=== PATIENT | male | born 1960 | race Caucasian/White ===

== ENCOUNTER 2023-12-18 18:04 | Inpatient (IN) | payer OTHER, SELFPAY ==
[2023-12-18] VITALS (7 sets, daily range): BP systolic 93–134; BP diastolic 53–82; BMI 29.5; BMI 30.8
--- NOTE | 2023-12-18 12:38 | ED.PDOC.TRB ---
ED Provider Triage
-
Patient seen by provider in Triage?: Seen in Triage
63-year-old male with history of hypertension-into the ER after dark stool on toilet for last 2 days. He does note fatigue more recently as well. History of gastric ulcer in the past. Currently takes 81 mg aspirin. Has had a tooth ache but
states only was taking Tylenol and not any NSAIDs. No other blood thinners. No tobacco or alcohol use. Blood pressure is noted to be a little bit on the lower side but he is otherwise stable. Will initiate labs and EKG. Patient is stable for
the waiting room at this time but will keep a close eye on his hemoglobin.
[2023-12-18 13:13] LABS: % Basophils 0.6 % (0-2); % Eosinophils 0.7 % (0-6); % Immature Granulocytes 0.2 % (0-0.5); % Monocytes 6.7 % (1.7-9.3); % Neutrophils 75.8 % (42.2-75.2); Absolute Basophils 0.1 10^3/uL (0-0.2); Absolute Eosinophils 0.1 10^3/uL (0-0.7); Absolute Lymphocytes 1.4 10^3/uL (1.2-3.4); Absolute Monocytes 0.6 10^3/uL (0.1-0.6); Absolute Neutrophils 6.8 10^3/uL (1.4-6.5); Hematocrit 27.4 % (39.0-52.0); Hemoglobin 9.5 g/dL (13.0-18.0); Mean Corp Hgb Conc. 34.7 g/dL (33.0-37.0); Mean Corpuscular Hgb 29.6 pg (27.0-31.0); Mean Corpuscular Volume 85.4 fL (80.0-94.0); Mean Platelet Volume 8.9 fL (7.4-10.4); Nucleated Red Blood Cells % 0 % (-); Platelet Count 338 10^3/uL (130-400); Red Blood Cell Count 3.21 10^6/uL (4.70-6.10); Red Cell Dist. Width 14.4 % (11.5-14.5); White Blood Cell Count 8.9 10^3/uL (4.8-10.8)
[2023-12-18 13:26] LABS: ALT (SGPT) 41 U/L (0-50); AST (SGOT) 45 U/L (17-59); Alkaline Phosphatase 109 U/L (38-126); Blood Urea Nitrogen 57 mg/dl (9-20); Calcium 9.4 mg/dl (8.4-10.2); Carbon Dioxide 19 mmol/L (22-30); Chloride 107 mmol/L (98-107); Glucose 117 mg/dl (70-99); Potassium 4.6 mmol/L (3.5-5.1); Sodium 136 mmol/L (135-145); Total Bilirubin 0.4 mg/dl (0.2-1.3); Total Protein 6.6 g/dl (6.3-8.2); eGFR > 60.00
--- NOTE | 2023-12-18 15:47 | ED.GENMED ---
History of Present Illness
General
Chief Complaint: Anal/Rectal Problem
Time Seen by Provider: 12/18/23 15:10
Travel History
Have you had any contact with someone who has COVID-19?: No
Do you have any symptoms of coronavirus? Fever > 100 degrees, chills, cough, shortness of breath, sore throat, loss of taste or smell, muscle aches, or headache?: No
History of Present Illness
History of Present Illness:
Patient presents to the emergency department with general weakness and dark stools for the past 2 to 3 days. Notes feeling generally fatigued. Denies abdominal pain. Notes that his stools have been very dark. Has a history of bleeding gastric
ulcer in the past. He states that it was felt to be contributed to aspirin use at that time. Does note intermittent Advil use. Denies alcohol use.
Phy Exam
Physical Exam
Physical Exam:
GENERAL APPEARANCE: NAD, well developed/ well nourished, unkempt
EYES pallor noted
EARS/NOSE/THROAT Mucous membranes moist, uvula midline without oral pharyngeal erythema, exudate or swelling
HEAD/NECK normocephalic atraumatic, neck is supple.
RESPIRATORY respiratory effort normal, speaks in full sentences, no accessory muscle use. Lungs clear to auscultation without rhonchi, wheezes, rales
CARDIAC Regular rate and rhythm, no edema.
ABDOMINAL Soft, ND/NT.
MUSCLES/EXTREMITIES No abnormal range of motion, no swelling.
SKIN Warm, pink and dry. No rashes
NEUROLOGICAL Speech is clear and appropriate. Normal level of consciousness. 5/5 strength in all extremities.
PSYCH Normal mood and affect. Judgement/competence is appropriate
Scores
GI Bleed
History of cardiac failure?: No
History of hepatic failure?: No
History of recent syncope?: No
Pulse >100?: No
SBP <110?: Yes
Hgb <13 (male) <12 (female)?: Yes
BUN >18mg/dL?: Yes
Melena present?: Yes
Recommendation: Pt has higher risk for needing a medical intervention. Inpatient admission recommended.
Course
Orders/Labs/Results
Orders:
Orders
12/18/23 12:35
Electrocardiogram (*1) Urgent
Reason for Study: Fatigue / Weakness
EKG- Treatment ONCE
12/18/23 12:51
Type+Screen Urgent
Complete Blood Count/With Diff Urgent
Comprehensive Metabolic Panel Urgent
Ferritin Urgent
Comment: ADD ON
Iron Urgent
Total Iron Binding Urgent
12/18/23 Dinner
NPO
Allow oral meds: Yes
Allow clear liquids: Sips of Clears
12/18/23 15:43
Pantoprazole 80 mg/100 ml Nss [Protonix] 80 mg in 100 ml IV NOW
Pantoprazole [Protonix IV] 80 mg IV NOW STA
12/18/23 16:38
0.9% Sodium Chloride 1000 ml [Nss] 1,000 ml IV BOLUS
12/18/23 16:44
Add On- LAB Routine
Tests Added?: iron, TIBC, % sat, ferritin
12/18/23 16:53
Admit/Transfer Patient As Directed
Co-Sign Provider:
Level of Care: Inpatient admission
Assign to:: Telemetry
Physician / Group: andie
Diagnosis: UGIB
Reason for Telemetry: Arrhythmia
Date to Stop Telemetry: 12/21/23
Time to Stop Telemetry: 11:00
Reason for Hospitalization: UGIB
Expected length of stay greater than two midnights?: Yes
ELOS- Estimated Length of Stay in days: 2
I certify the patient meets the requirements for IP care: Yes
Code Status As Directed
Resuscitation Status: Full Code
12/18/23 19:59
GASTROINTESTINAL CONSULT Routine
Consulting Provider: Nahomy Khan
Was physician already notified: Yes
Activity As Directed
Activity Level: As Tolerated
Pneumatic Compression Sleeves As Directed
Type: Knee high
Vital Signs As Directed
Frequency: Per unit guidelines
DX Deep Vein Thrombosis Video Routine
12/19/23 02:00
Pantoprazole 80 mg/100 ml Nss [Protonix] 80 mg in 100 ml IV Q10H
12/19/23 Breakfast
NPO
Allow oral meds: Yes
Allow clear liquids: 4hrs prior to procedure
NPO for procedure after (time): midnight for GI Procedure tomorrow
Comment: may have unrestricted clear liquids up to 4 hrs prior to scheduled proc
Basic Metabolic Panel IN AM
Complete Blood Count/No Diff IN AM
Complete Blood Count/With Diff IN AM
Comprehensive Metabolic Panel IN AM
Prothrombin Time IN AM
12/19/23 08:00
Ezetimibe [Zetia] 10 mg PO DAILY
Rosuvastatin Calcium [Crestor] 5 mg PO DAILY
12/19/23 16:46
Surgical Procedure As Directed
Surgical Procedure: EGD 67
12/21/23 11:00
DC Protocol for Telemetry ONCE
Abnormal Lab Results
12/18/23
12:51
RBC 3.21 L 10^6/uL
(4.70-6.10)
Hgb 9.5 L g/dL
(13.0-18.0)
Hct 27.4 L %
(39.0-52.0)
Absolute Neuts (auto) 6.8 H 10^3/uL
(1.4-6.5)
Neutrophils % 75.8 H %
(42.2-75.2)
Lymphocytes % 16.0 L %
(20.5-51.1)
Carbon Dioxide 19 L mmol/L
(22-30)
BUN 57 H mg/dl
(9-20)
Glucose 117 H mg/dl
(70-99)
% Saturation 18 L %
(20-50)
12/18/23 12:51
12/18/23 12:51
Vital Signs
Initial and Last Documented VS:
Initial Vital Signs
Temp Pulse Resp BP Pulse Ox
98.0 F 94 16 100/53 98
12/18/23 12:30 12/18/23 12:30 12/18/23 12:30 12/18/23 12:30 12/18/23 12:30
Last Documented Vital Signs
Temp Pulse Resp BP Pulse Ox
98.2 F 81 18 114/65 98
12/18/23 20:08 12/18/23 20:08 12/18/23 20:08 12/18/23 20:08 12/18/23 20:08
*Critical Care Note
Total Time (30-74mins, 75-104mins- exclusive of procedures): Not Applicable
ED Attending Note
ED Attending Note
ED Attending Note:
Patient has melena currently. Systolic blood pressure is 100. Hemoglobin 9.5 but no prior to compare. BUN 57. Suspect upper GI bleeding likely from recurrent gastric ulcer. Will admit to the hospitalist service and consult GI. Patient started
on Protonix drip.
-
Portions of this chart may have been created with voice recognition software.� Occasional wrong word or��sound alike� substitutions may have occurred due to the inherent limitations of voice recognition software.
Discharge Plan
Departure
Patient Disposition: Admit
Date of Disposition: 12/18/23
Time of Disposition: 15:53
Admit to: Med/Surg
Admit to doctor: hospitalist
Presentation/result/management discussed w/ accepting MD/DO: Hospitalist
Discharge Problem:
Acute upper gastrointestinal bleeding
Interventions
Interventions:
*Risk Screen - Suicide Last Done: 12/18/23 16:24
*General Assessment Last Done: 12/18/23 16:24
*Neglect/Abuse Screening Last Done: 12/18/23 16:24
ED- Fall Risk Assessment Last Done: 12/18/23 19:47
*ED COVID-19 Vaccine History Last Done: 12/18/23 12:30
*Nursing Disposition Last Done: 12/18/23 19:47
ED-Skin Assessment Last Done: 12/18/23 16:24
Discharge Date and Time
Discharge Date/Time: 12/18/23 19:48
--- NOTE | 2023-12-18 16:00 | CON.GI ---
Addendum entered and electronically signed by Nahomy Khan MD 12/18/23 19:05:
I saw and examined the patient.
The PIGMENT PRESSER or PA's note was reviewed and I agree with the note.
Comment:
Pt is a 63 y/o with previous esophagitis in 2002 who took nsaids and had melena. No abdominal pain
abd: soft, nontender
impression
melena likely due to PUD from nsaids
anemia
gerd
plan:
PPI bid
EGD tomorrow
follow hgb
clears ok for tonight
colonoscopy if egd negative or electively
Original Note:
Consultation
-
Date/Time Consultation Requested: 12/18/23 1555
Date/Time Consultation Performed: 12/18/23 1600
Requesting Provider: Jcarlos Donohue MD
Performing Provider: JUANITA Duncan, Nahomy Khan MD
Reason for Consultation: eval for GI bleed
Medical History
Chief Complaint / HPI
Chief Complaint: dark stools
History of Present Illness:
Pt is a 63yo with hx CVA, HTN, GERD, GI bleed 2002 with grade II esophagitis, large distal esophageal ulcer about Z line with clot and HH noted at that time. Pt returned several months late with noted gastritis, HH and schatzki's ring on repeat EGD
with neg H pylori. He states he has been doing well with routine follow up with cardiology for HTN management and PCP. He did not recall any abnormal labs several months ago. He now presents with dark stools x 2 days with fatigue, dizziness,
and noted Melena in ER. Currently on ASA 81 mg daily. He also admits to last week taking about 24 Aleve over the week for tooth pain. He stopped medication and has not followed up with dentist. On admission hbg was 9.5, with BUN 57 and last stool
6/5 PM. He did take a Prilosec after noted some blood last week than may have been from his tooth.
Pt admits to mild abdominal pain and dizziness. He otherwise denies odynophagia, dysphagia, GERD, diarrhea, constipation, or red blood in stools. no anticoagulation prior to admission.
Past Medical History
Past Medical History: CVA, HTN and Other (GI bleed with prior esophagititis and large )
Social History
Tobacco: Former Smoker (quit 2000)
Alcohol: None
Drug: None
Living: With Family (son)
Employment: Retired
Family History
Family History: Other (no family hx GI problems)
Allergies / Home Medications
Allergy/AdvReac Type Severity Reaction Status Date / Time
NKA - No Known Allergies Allergy Unknown Uncoded 12/18/23 12:34
�Medication �Instructions �Recorded
amlodipine 10 mg tablet 10 mg PO DAILY 12/18/23
aspirin 81 mg tablet,delayed 81 mg PO DAILY 12/18/23
release
ezetimibe 10 mg tablet 10 mg PO DAILY 12/18/23
hydrochlorothiazide 12.5 mg tablet 12.5 mg PO DAILY 12/18/23
lisinopril 40 mg tablet 40 mg PO DAILY 12/18/23
rosuvastatin 5 mg tablet 5 mg PO DAILY 12/18/23
Review of Systems
-
History Source: Patient
Constitutional: Reports Fatigue
EENT: Reports Other (recent tooth pain with NSAID use)
Respiratory: Reports No Symptoms
Abdomen/GI: Reports Abdominal Pain, Nausea, Vomiting and Black Stools
: Reports No Symptoms
Musculoskeletal: Reports Joint Pain
Skin: Reports No Symptoms
Neurological: Reports Dizzy and Weakness
Endocrine: Reports No Symptoms
Hematologic/Lymphatic: Reports Bleeding
Vital Signs
Temp Pulse Resp BP Pulse Ox
98.0 F 94 16 100/53 98
12/18/23 12:30 12/18/23 12:30 12/18/23 12:30 12/18/23 12:30 12/18/23 12:30
Physical Exam
Exam
General: Well Developed, Well Nourished and No Apparent Distress
HEENT: Normocephalic and Anicteric
Respiratory: Clear
Cardiac: Regular Rhythm
GI: Soft, Non Tender and Non Distended
Musculoskeletal: No Clubbing and No Cyanosis
Skin: Warm and Dry
Neuro: Awake, Alert and AO x 3
Psych: Calm
Results
WBC 8.9 10^3/uL (4.8-10.8) 12/18/23 12:51
Hgb 9.5 g/dL (13.0-18.0) L 12/18/23 12:51
Hct 27.4 % (39.0-52.0) L 12/18/23 12:51
MCV 85.4 fL (80.0-94.0) 12/18/23 12:51
Plt Count 338 10^3/uL (130-400) 12/18/23 12:51
Absolute Neuts (auto) 6.8 10^3/uL (1.4-6.5) H 12/18/23 12:51
Sodium 136 mmol/L (135-145) 12/18/23 12:51
Potassium 4.6 mmol/L (3.5-5.1) 12/18/23 12:51
Chloride 107 mmol/L (98-107) 12/18/23 12:51
Carbon Dioxide 19 mmol/L (22-30) L 12/18/23 12:51
BUN 57 mg/dl (9-20) H 12/18/23 12:51
Creatinine 1.3 mg/dL (0.7-1.3) 12/18/23 12:51
Calcium 9.4 mg/dl (8.4-10.2) 12/18/23 12:51
Total Bilirubin 0.4 mg/dl (0.2-1.3) 12/18/23 12:51
AST 45 U/L (17-59) 12/18/23 12:51
ALT 41 U/L (0-50) 12/18/23 12:51
Alkaline Phosphatase 109 U/L (38-126) 12/18/23 12:51
Diagnostic Image Results:
Prior GI Procedures:
EGD: 2002 with grade II esophagitis, large distal esophageal ulcer about Z line with clot and HH noted at that time.
EGD: 2003 gastritis, HH and schatzki's ring on repeat EGD with neg H pylori.
Colonoscopy: none
Assessment / Plan
-
Pt is a 63yo with hx CVA, HTN, GERD, GI bleed 2002 with grade II esophagitis, large distal esophageal ulcer about Z line with clot and HH noted at that time. Pt returned several months late with noted gastritis, HH and schatzki's ring on repeat EGD
with neg H pylori. He states he has been doing well with routine follow up with cardiology for HTN management and PCP. He did not recall any abnormal labs several months ago. He now presents with dark stools x 2 days with fatigue, dizziness,
and noted Melena in ER. Currently on ASA 81 mg daily. He also admits to last week taking about 24 Aleve over the week for tooth pain. He stopped medication and has not followed up with dentist. On admission hbg was 9.5, with BUN 57 and last stool
6/5 PM. He did take a Prilosec after noted some blood last week than may have been from his tooth. No Anticoagulation prior to admission.
-melena
-symptomatic anemia
-recent NSAID use for tooth pain
-2002 hx GI bleed distal esophageal ulcer, HH, schatzki's ring
-GERD
-HTN
-hx CVA 2000
PLAN:
ETiology of melena and anemia related to Peptic/esophageal ulcer, chaim lesion with hx HH vs other
trend hbg and stool pattern transfuse <7
PPI gtt
plan for EGD in AM if neg consider colonoscopy vs if + consider OP colon for screening
NSAID avoidance
will need OP dental eval with tooth issue
will follow
-
-
Thank you for consultation and allowing me to participate in the patient's care. Please call the main [facility] physician during the after hours with any questions or concerns.
[2023-12-18] MEDS: PROTONIX 100 IV (16:22)
[2023-12-18] MEDS: PROTONIX IV 80 MG IV (16:23)
[2023-12-18] MEDS: NSS 1000 IV (16:48)
--- NOTE | 2023-12-18 16:57 | HPS.HSE ---
Addendum entered and electronically signed by Aster Contreras MD 12/18/23 17:01:
Outpatient follow up with dentist for tooth ache.
Original Note:
Family Physician
-
Family Physician: Victorina Senior
Chief Complaint
-
black stool
History of Present Illness
63-year-old male past medical history of prior bleeding gastric ulcer 2002, hypertension, hypercholesterolemia, CVA in 2000, cervical disc disease/arthritis presenting with episode of black stool yesterday night. He denies any bowel movement today.
He did feel lightheaded today with fatigue. He did have some abdominal pain this morning but this has since resolved. He denies any nausea or vomiting.
He has recently been taking ibuprofen for toothache. He takes baby aspirin every day.
He has a history of bleeding gastric ulcer in 2002 that was attribute to aspirin use.
He drinks alcohol on occasion. He denies smoking or marijuana use.
Medical History
Past Medical History
Past Medical History: Reports Other (prior bleeding gastric ulcer 2002, hypertension, hypercholesterolemia, CVA in 2000, cervical disc disease/arthritis )
Past Surgical History: Reports None
Social History
Tobacco: Non-smoker
Alcohol: Occasional
Drug: None
Family History
Family History: Not pertinent
Allergies / Home Medications
Allergies reflects when Allergies were last updated in [employer].
Home Medications with original date entered in [employer]
Allergy/Medication List:
Allergies
Allergy/AdvReac Type Severity Reaction Status Date / Time
NKA - No Known Allergies Allergy Unknown Uncoded 12/18/23 12:34
Home Medications
amlodipine 10 mg tablet 10 mg PO DAILY 12/18/23
aspirin 81 mg tablet,delayed release 81 mg PO DAILY 12/18/23
ezetimibe 10 mg tablet 10 mg PO DAILY 12/18/23
hydrochlorothiazide 12.5 mg tablet 12.5 mg PO DAILY 12/18/23
lisinopril 40 mg tablet 40 mg PO DAILY 12/18/23
rosuvastatin 5 mg tablet 5 mg PO DAILY 12/18/23
Review of Systems
-
History Source: Patient
A 12 point ROS was completed and negative except as noted: Yes
Constitutional: Reports No Symptoms
EENT: Reports No Symptoms
Respiratory: Reports No Symptoms
Cardiac: Reports No Symptoms
Abdomen/GI: Reports See HPI
: Reports No Symptoms
Musculoskeletal: Reports No Symptoms
Skin: Reports No Symptoms
Neurological: Reports No Symptoms
Endocrine: Reports No Symptoms
Hematologic/Lymphatic: Reports No Symptoms
Psych: Reports No Symptoms
Physical Exam
Vital Signs
Vital Signs
Temp Pulse Resp BP Pulse Ox
98.0 F 72 20 93/61 99
12/18/23 12:30 12/18/23 16:23 12/18/23 16:23 12/18/23 16:23 12/18/23 16:23
Physical Exam
General: Well Developed, Well Nourished and No Apparent Distress
HEENT: NormoCephalic, Moist mucous membranes and Atraumatic
Respiratory: Clear
Cardiac: S1/S2 and Regular Rhythm; No Murmur or Rub
GI: Soft, Non Tender, Non Distended and Normal Bowel Sounds; No Organomegaly
Rectal: Deferred by Provider
Musculoskeletal: No Clubbing, No Cyanosis and No Edema
Skin: No Rash
Neuro: Nonfocal/grossly intact
Laboratory Results
-
12/18/23 12:51
12/18/23 12:51
Laboratory Results
Total Bilirubin 0.4 mg/dl (0.2-1.3) 12/18/23 12:51
AST 45 U/L (17-59) 12/18/23 12:51
ALT 41 U/L (0-50) 12/18/23 12:51
Alkaline Phosphatase 109 U/L (38-126) 12/18/23 12:51
Data Reviewed
-
Lab Data: Labs Reviewed by me
Old Records: Reviewed
Impression/Plan
-
IMPRESSION:
PLAN:
# Upper GI bleeding likely secondary to gastric ulcer secondary to NSAID use/aspirin
# History of prior bleeding gastric ulcer in 2002
-Blood pressure 90-100 systolic
-Hemoglobin 9.5, unknown baseline
-IV fluids given
-N.p.o.
-Hold aspirin
-Protonix drip
-GI consulted
Essential hypertension
-Hold amlodipine, lisinopril, hydrochlorothiazide
Hyperlipidemia
-Continue statin, Zetia
History of CVA
-Hold aspirin
Cervical arthritis/disc disease
Full code
DVT prophylaxis�SCDs
N.p.o.
[2023-12-18 17:23] LABS: Iron 63 ug/dl (49-181)
[2023-12-18 17:32] LABS: Percent Saturation 18 % (20-50); Total Iron Binding Capacity 344 ug/dl (261-462)
[2023-12-18] MEDS: TYLENOL 650 MG PO (21:41)
--- NOTE | 2023-12-18 22:05 | PTCARENOTE ---
Received patient from ER, AAOx4. Patient ambulating with steady gait from stretcher to bed. C/o tooth/mouth pain and received tylenol. Oriented to unit, call araujo in reach. Plan of care continues.
[2023-12-19] VITALS (7 sets, daily range): BP systolic 18–111; BP diastolic 60–73
[2023-12-19] MEDS: PROTONIX 100 IV ×2 (01:28→10:56)
[2023-12-19] MEDS: TYLENOL 650 MG PO ×2 (03:51→23:21)
[2023-12-19] MEDS: ZETIA 10 MG PO (07:48)
[2023-12-19] MEDS: CRESTOR 5 MG PO (07:48)
[2023-12-19 07:58] LABS: % Basophils 0.4 % (0-2); % Eosinophils 0.7 % (0-6); % Immature Granulocytes 0.6 % (0-0.5); % Lymphocytes 18.8 % (20.5-51.1); % Neutrophils 71.5 % (42.2-75.2); Absolute Eosinophils 0.1 10^3/uL (0-0.7); Absolute Lymphocytes 1.3 10^3/uL (1.2-3.4); Absolute Monocytes 0.6 10^3/uL (0.1-0.6); Hematocrit 24.5 % (39.0-52.0); Hemoglobin 8.5 g/dL (13.0-18.0); Mean Corp Hgb Conc. 34.7 g/dL (33.0-37.0); Mean Corpuscular Hgb 29.3 pg (27.0-31.0); Mean Corpuscular Volume 84.5 fL (80.0-94.0); Mean Platelet Volume 8.9 fL (7.4-10.4); Nucleated Red Blood Cells % 0 % (-); Platelet Count 276 10^3/uL (130-400); Red Cell Dist. Width 14.6 % (11.5-14.5)
[2023-12-19 08:12] LABS: INR 1.05; PT 13.5 Sec (11.4-14.6)
[2023-12-19 08:57] LABS: ALT (SGPT) 47 U/L (0-50); AST (SGOT) 49 U/L (17-59); Albumin 3.6 g/dl (3.5-5.0); Alkaline Phosphatase 105 U/L (38-126); Blood Urea Nitrogen 41 mg/dl (9-20); Calcium 8.9 mg/dl (8.4-10.2); Carbon Dioxide 19 mmol/L (22-30); Chloride 106 mmol/L (98-107); Estimated Creatinine Clearance 70 ml/min; Glucose 96 mg/dl (70-99); Potassium 4.5 mmol/L (3.5-5.1); Sodium 135 mmol/L (135-145); Total Bilirubin 0.7 mg/dl (0.2-1.3); eGFR > 60.00
--- NOTE | 2023-12-19 11:53 | W.PN.HOSP.TC ---
Today's Communication/Plan
-
await GI input
pt says EGD this afternoon
Assessment / Plan
Assessment / Plan
pt is a 63 year old male
Upper GI bleeding likely secondary to gastric ulcer secondary to NSAID use/aspirin for toothache (History of prior bleeding gastric ulcer in 2002)--HGB 9.5 to 8.5 with IVF--N.p.o.--Hold aspirin--Protonix drip--await GI
Essential hypertension--Hold amlodipine, lisinopril, hydrochlorothiazide
Hyperlipidemia--Continue statin, Zetia
History of CVA--Hold aspirin
Cervical arthritis/disc disease
Full code
DVT prophylaxis�SCDs
Anticipated Discharge: 24 - 48 hours
Subjective/Interval History
-
Date of Service: December 19, 2023
pt waiting for EGD
Objective Data
-
Labs:
Laboratory Results
12/19/23
06:39
WBC 7.0
Hgb 8.5 L
Hct 24.5 L
Plt Count 276
PT 13.5
INR 1.05
Sodium 135
Potassium 4.5
Chloride 106
Carbon Dioxide 19 L
BUN 41 H
Creatinine 1.1
Glucose 96
Calcium 8.9
Total Bilirubin 0.7
AST 49
ALT 47
Alkaline Phosphatase 105
Vital Signs:
max temp for 24 hours
12/19/23
03:41
Temp 98.4 F
Vital Signs
Temp Pulse Resp BP Pulse Ox
97.5 F 71 16 111/65 98
12/19/23 07:55 12/19/23 07:55 12/19/23 07:55 12/19/23 07:55 12/19/23 07:55
I&O
12/18/23 12/19/23 12/20/23
06:59 06:59 06:59
Output Total 750 / 750
Balance -750 / -750
Review of Systems
-
All other systems: Reviewed and negative
Physical Exam
-
General: Well Developed, Well Nourished and No Apparent Distress
HEENT: Normocephalic and Atraumatic
Respiratory: Clear to Auscultation; Negative Wheezes or Rhonchi
Cardiac: Regular Rhythm and S1/S2; Negative Murmur
GI: Soft, Nontender, Nondistended and Normal Bowel Sounds
Musculoskeletal: No Clubbing, No Cyanosis and No Edema
Neuro: Awake and Alert
--- NOTE | 2023-12-19 12:03 | CM ---
Patient seen at bedside with physician. Patient states that he lives with his son in a one story home. Patient states he has no DME at home and that he does not have [facility] yet. Patient PCP is Dr. Senior and he uses the [facility] in [place]. Patient is
driving and retired. Patient for testing today. CM will continue to follow for discharge planning needs.
Plan; home with no needs
[2023-12-19] MEDS: NSS (PRESERVATIVE FREE) 10 ML IV (20:28)
[2023-12-19] MEDS: CARAFATE 1 GRAM PO (20:28)
[2023-12-19] MEDS: PROTONIX IV 40 MG IV (20:29)
[2023-12-20] MEDS: TYLENOL 650 MG PO (03:35)
[2023-12-20 03:38] VITALS: BP 110/78
[2023-12-20 06:11] LABS: Hematocrit 24.2 % (39.0-52.0); Hemoglobin 8.6 g/dL (13.0-18.0); Mean Corp Hgb Conc. 35.5 g/dL (33.0-37.0); Mean Corpuscular Hgb 29.8 pg (27.0-31.0); Mean Corpuscular Volume 83.7 fL (80.0-94.0); Mean Platelet Volume 8.7 fL (7.4-10.4); Platelet Count 281 10^3/uL (130-400); Red Blood Cell Count 2.89 10^6/uL (4.70-6.10); Red Cell Dist. Width 14.6 % (11.5-14.5); White Blood Cell Count 7.3 10^3/uL (4.8-10.8)
[2023-12-20 06:32] LABS: Blood Urea Nitrogen 27 mg/dl (9-20); Calcium 8.8 mg/dl (8.4-10.2); Carbon Dioxide 23 mmol/L (22-30); Chloride 103 mmol/L (98-107); Estimated Creatinine Clearance 70 ml/min; Glucose 102 mg/dl (70-99); Potassium 4.3 mmol/L (3.5-5.1); Sodium 135 mmol/L (135-145); eGFR > 60.00
[2023-12-20 07:18] VITALS: BP 121/82
[2023-12-20] MEDS: CRESTOR 5 MG PO (08:43)
[2023-12-20] MEDS: CARAFATE 1 GRAM PO (08:43)
[2023-12-20] MEDS: ZETIA 10 MG PO (08:43)
[2023-12-20] MEDS: NSS (PRESERVATIVE FREE) 10 ML IV (08:43)
[2023-12-20] MEDS: PROTONIX IV 40 MG IV (08:47)
[2023-12-20] MEDS: FIRST-MOUTHWASH BLM SUSPENSION 5 ML PO (09:35)
--- NOTE | 2023-12-20 12:18 | CM ---
Patient seen bedside, reports no concerns to CM at this time. Patient reports he does have transportation home upon discharge. CM will continue to follow for all discharge planning needs.
Plan; home no needs, when stable.
--- NOTE | 2023-12-20 13:11 | W.PN.HOSP.TC ---
Today's Communication/Plan
-
d/c
Assessment / Plan
Assessment / Plan
pt is a 63 year old male
Upper GI bleeding likely secondary to gastric ulcer secondary to NSAID use/aspirin for toothache (History of prior bleeding gastric ulcer in 2002)--HGB 9.5 to 8.5 --tolerating diet--Hold aspirin--Protonix apprec GI--EGD with esophageal ulcer
Essential hypertension--Hold amlodipine, lisinopril, hydrochlorothiazide
Hyperlipidemia--Continue statin, Zetia
History of CVA--Hold aspirin
Cervical arthritis/disc disease
Full code
DVT prophylaxis�SCDs
Anticipated Discharge: Today
Subjective/Interval History
-
Date of Service: December 20, 2023
pt tolerating diet
Objective Data
-
Labs:
Laboratory Results
12/20/23
05:46
WBC 7.3
Hgb 8.6 L
Hct 24.2 L
Plt Count 281
Sodium 135
Potassium 4.3
Chloride 103
Carbon Dioxide 23
BUN 27 H
Creatinine 1.1
Glucose 102 H
Calcium 8.8
Vital Signs:
max temp for 24 hours
12/20/23
07:18
Temp 98.3 F
Vital Signs
Temp Pulse Resp BP Pulse Ox
98.3 F 90 24 121/82 94
12/20/23 07:18 12/20/23 07:18 12/20/23 07:18 12/20/23 07:18 12/20/23 07:18
I&O
12/19/23 12/20/23 12/21/23
06:59 06:59 06:59
Output Total 750 / 750 1325 / 1325
Balance -750 / -750 -1325 / -1325
Review of Systems
-
All other systems: Reviewed and negative
Physical Exam
-
General: Well Developed, Well Nourished and No Apparent Distress
HEENT: Normocephalic and Atraumatic
Respiratory: Clear to Auscultation; Negative Wheezes or Rhonchi
Cardiac: Regular Rhythm and S1/S2; Negative Murmur
GI: Soft, Nontender, Nondistended and Normal Bowel Sounds
Musculoskeletal: No Clubbing, No Cyanosis and No Edema
--- NOTE | 2023-12-20 14:42 | W.DCSUMMARY ---
Discharge Summary
Discharge Data
Date of Admission: 12/18/23
Date of Discharge: 12/20/23
-
Pending Results: No
Hospital Course
Primary care physician : Victorina Senior
Principal Discharge diagnosis : Upper GI bleeding secondary to esophageal ulcer exacerbated by nonsteroidal use
Chronic Discharge diagnosis : Essential hypertension, hyperlipidemia, history of stroke, cervical arthritis
Hospital Course : Patient was a 63-year-old male with a history of a prior bleeding gastric ulcer in 2002 on aspirin for CVA in 2000 who presented with black stool on the day prior to admission. He denied any bowel movements on the day of
admission. He felt lightheaded with fatigue and did have some abdominal pain which resolved. He was taking ibuprofen for a toothache. Hemoglobin was found to be 9.5 without any old to compare. Patient was admitted.
Problem #1: Upper GI bleeding. Patient was seen in consultation by GI. Endoscopy showed esophageal ulcer along with mucosal changes suspicious for long segment Mcgarry's esophagus. There were no lesions in the stomach. No specimens were
collected. This was likely exacerbated by the nonsteroidal use that he was taking for his tooth pain. Patient was placed on IV Protonix drip which has been converted to oral Protonix twice daily along with the addition of sucralfate twice daily.
He should be seen in follow-up in 4 to 6 weeks with GI to schedule repeat endoscopy in 2 months to ensure clearance.
Problem #2: All other medical issues. These include Essential hypertension, hyperlipidemia, history of stroke, cervical arthritis. These medical issues were stable during his hospitalization. Medications were continued as able. In regards to his
tooth ache, he should visit the dentist.
Patient tolerated his diet and is stable for discharge home at this time. If there are any questions regarding this dictation or his hospital stay, please do not hesitate to call. Our office number is [phone].
Procedure findings :
EGD Impression: - LA Grade A esophagitis with no bleeding.
- Esophageal ulcer.
- Esophageal mucosal changes suspicious for
long-segment Mcgarry's esophagus.
- 5 cm hiatal hernia.
- No gross lesions in the entire stomach.
- Normal examined duodenum.
- No specimens collected.
Discharge Plan
-
Patient Disposition: Home (Routine Discharge)
Discharge Diagnosis/Procedures: Upper GI bleeding due to nonsteroidal use for toothache, essential hypertension, hyperlipidemia, history of stroke, cervical arthritis and disc disease
Condition: Good
Diet: Low Residue
Additional Diets: Advance as tolerated to regular diet
Activity: As tolerated
Driving Restrictions: As prior to admission
Bathing Restrictions: None
Referrals:
Oneyda Frost MD [Active] - in four to six weeks
Victorina Senior CRNP [Family Provider] - in less than 1 week
Additional Discharge Medication Instructions: You will need to take both the pantoprazole and sucralfate twice daily for 8 weeks. I have given you 1 month supply of both. You will need to go to your family doctor for refill.
Prescriptions:
New
sucralfate 1 gram Tablet
1 g PO BID Qty: 60 0RF
Rx Instructions:
take for 8 weeks
pantoprazole 40 mg tablet,delayed release (DR/EC)
40 mg PO BID Qty: 60 0RF
Rx Instructions:
take twice daily x 8 weeks
Continued
amlodipine 10 mg tablet
10 mg PO DAILY
lisinopril 40 mg tablet
40 mg PO DAILY
ezetimibe 10 mg tablet
10 mg PO DAILY
rosuvastatin 5 mg tablet
5 mg PO DAILY
hydrochlorothiazide 12.5 mg tablet
12.5 mg PO DAILY
Held
aspirin 81 mg Tablet,Delayed Release (Dr/Ec)
81 mg PO DAILY
Hold Instructions: restart in 1 week
Discharge Orders:
Discharge Patient (As Directed); Ordered 12/20/23
Ordered By: Edwige Quinn
Discharge Date and Time
Print Language: FIJIAN
== END 2023-12-20 16:00 | disposition home or self-care (01) | DRG 382 ==
LOC: 4 EAST ACU 18:04
PROVIDERS: Internal Medicine Gastroenterology; Nurse Practitioner Adult Health; Physician Assistant Medical; ADMITTING PHYSICIAN Hospitalist; ATTENDING PHYSICIAN Internal Medicine; CONSULT PHYSICIAN Internal Medicine; EMERGENCY PHYSICIAN Emergency Medicine; FAMILY PHYSICIAN Nurse Practitioner Adult Health
PROC: 0DJ08ZZ Inspection of Upper Intestinal Tract, Via Natural or Artificial Opening Endoscopic (ICD-10-PCS; 2023-12-19)
DX: K22.11 Ulcer of esophagus with bleeding (principal); D50.0 Iron deficiency anemia secondary to blood loss (chronic); I10 Essential (primary) hypertension; K22.89 Other specified disease of esophagus; K21.00 Gastro-esophageal reflux disease with esophagitis, without bleeding; E78.00 Pure hypercholesterolemia, unspecified; K08.89 Other specified disorders of teeth and supporting structures; K44.9 Diaphragmatic hernia without obstruction or gangrene; M47.812 Spondylosis without myelopathy or radiculopathy, cervical region; T39.395A Adverse effect of other nonsteroidal anti-inflammatory drugs [NSAID], initial encounter; Z79.82 Long term (current) use of aspirin; Z79.899 Other long term (current) drug therapy; Z87.11 Personal history of peptic ulcer disease; Z86.73 Personal history of transient ischemic attack (TIA), and cerebral infarction without residual deficits; Z87.19 Personal history of other diseases of the digestive system; Z87.891 Personal history of nicotine dependence
CPT/HCPCS: 80048; 80053; 82728; 83540; 83550; 85025; 85027; 85610; 86850; 86900; 86901; 93005; 96365; 96366; 99284

== ENCOUNTER 2024-01-13 12:23 | Inpatient (IN) | payer OTHER, SELFPAY ==
[2024-01-13] VITALS (13 sets, daily range): BP systolic 105–137; BP diastolic 68–85; PULSE 84–119; BMI 28.9
--- NOTE | 2024-01-13 09:45 | ED.GENMED ---
History of Present Illness
General
Chief Complaint: Breathing Problem
Source: patient
Exam Limitations: none
Time Seen by Provider: 01/13/24 09:45
Nursing documentation reviewed up to this point in time: agreed with
History of Present Illness
History of Present Illness:
63-year-old male with history of HTN, HLD, GERD, CVA 2000, admitted 12/17-12/20/23 for upper GI bleed (Endoscopy showed esophageal ulcer along with mucosal changes suspicious for long segment Mcgarry's esophagus), Esophagitis with bleed 12/2023, bleeding
gastric ulcer 2002, ex smoker presents stating he's been increasingly SOB over past 2 days. He noted blood in his sputum and vomited once today a 'little bit of dark blood.' Denies chest pain. Has some epigastric pain. Notes no change in color of
stools.
Past History
Past History
ED Past Medical History: CVA, HTN, Hypercholesterolemia and Other (Esophagitis with bleed 12/2023, bleeding gastric ulcer 2002)
ED Past Surgical History: None
Social History
Tobacco: Former smoker (quit 2000)
Alcohol: None
Personal: Single
Living: with family (son)
Employment: Retired
Review of Systems
Review of Systems
Allergies reviewed?: Yes
All Other Systems: ROS reviewed and negative except as documented in HPI and ROS
Constitutional: Denies fever
Respiratory: Reports hemoptysis and trouble breathing
Cardiac: Denies chest pain, diaphoresis, palpitations or syncope
ABD/GI: Reports abdominal pain; Denies nausea, vomiting, diarrhea, bloody stools or black stools
: Denies dysuria, frequency or difficulty voiding
Musculoskeletal: Reports no symptoms
Skin: Reports no symptoms
Neurological: Reports no symptoms
Phy Exam
Physical Exam
Physical Exam:
GENERAL: No acute distress. A&Ox3.
CONSTITUTIONAL: Afebrile.
EYES: PERRL, conjunctivae normal
ENMT: moist mucus membranes, Pharynx nl
RESPIRATORY: Regular respirations, nonlabored, right lung sounds diminished, clear L lung ward
CARDIOVASCULAR: Regular rate and rhythm, tachycardic rate 114, no murmurs, no rubs.
GI: Soft, tender epigastric area, normal BS
Rectal: Brown stool heme positive
MUSCULOSKELETAL: Moves with ease. Well perfused. No edema
SKIN: Warm, dry, pink
PSYCH: Normal mood and affect. Well kept, interactive and appropriate
NEUROLOGIC: Awake, alert and oriented. No focal neurological deficits
Scores
Heart Failure Risk
Heart Failure Risk Score: Not Applicable
Course
Orders/Labs/Results
Orders:
Orders
01/13/24 09:55
Electrocardiogram (*1) Stat
Reason for Study: Other
Other Reason for Exam: GI Bleed
EKG- Treatment ONCE
IV Insert/Care/Rem.- Treatment PRN
CR Chest - 2 Views Urgent
Comment:
Reason For Exam: SOB
01/13/24 09:56
Type And Crossmatch Urgent
Complete Blood Count/With Diff Urgent
Comprehensive Metabolic Panel Urgent
Lipase Urgent
01/13/24 09:57
PTT Urgent
Prothrombin Time Urgent
01/13/24 10:12
0.9% Sodium Chloride 1000 ml [Nss] 1,000 ml IV BOLUS
01/13/24 10:20
Pantoprazole 80 mg/100 ml Nss [Protonix] 80 mg in 100 ml IV NOW
Pantoprazole [Protonix IV] 80 mg IV NOW STA
01/13/24 10:21
* Blood Bank Products Urgent
Blood Bank Products: *Packed RBC Leuko(PRBC's)
Quantity: 2
Transfuse Today: Yes
Reason: Bleeding
IV Insert/Care/Rem.- Treatment PRN
IV Insert/Care/Rem.- Treatment PRN
01/13/24 10:27
GASTROINTESTINAL CONSULT Urgent
Consulting Provider: Nikolas Diana
Was physician already notified: Yes
Reason for consult: GI bleed
01/13/24 11:38
Admit/Transfer Patient As Directed
Co-Sign Provider:
Level of Care: Inpatient admission
Assign to:: Telemetry
Physician / Group: Hospitalist
Diagnosis: anemia
Patient Condition: Fair
Reason for Telemetry: Other
Other Reason for Telemetry: severe anemia
Date to Stop Telemetry: 01/15/24
Time to Stop Telemetry: 11:00
Reason for Hospitalization: Anemia requiring transfusion
Expected length of stay greater than two midnights?: Yes
ELOS- Estimated Length of Stay in days: 4
I certify the patient meets the requirements for IP care: Yes
01/13/24 11:53
Code Status As Directed
Resuscitation Status: Full Code
01/13/24 12:10
Iohexol [Omnipaque] See Protocol PO NOW STA
01/13/24 13:13
Acetaminophen [Tylenol] 650 mg PO TIDPRN PRN
Pantoprazole [Protonix IV] 40 mg IV DAILY
Pantoprazole [Protonix] 40 mg PO BID
01/13/24 13:13
Activity As Directed
Activity Level: Ambulate
INT (Intravenous Needle Therapy) As Directed
Comment: Place 2 IV catheters of the largest bore possible until stable
Orthostatic Vital Signs As Directed
Orthostatic VS Frequency: Now
Comment: then every four hours for twenty-four hours
Pneumatic Compression Sleeves As Directed
Type: Knee high
Vital Signs As Directed
Frequency: Per unit guidelines
DX Deep Vein Thrombosis Video Routine
01/13/24 Dinner
NPO
Allow oral meds: No
Allow clear liquids: No
NPO with Ice Chips: No
NPO for procedure after (time): midnight
0.9% Sodium Chloride 1000 ml [Nss] 1,000 ml IV Per Protocol mls/hr
Amlodipine [Norvasc] 10 mg PO DAILY
Ezetimibe [Zetia] 10 mg PO DAILY
Hydrochlorothiazide [Oretic] 12.5 mg PO DAILY
Lisinopril [Zestril] 40 mg PO DAILY
Rosuvastatin Calcium [Crestor] 5 mg PO DAILY
01/13/24 20:00
Sucralfate [Carafate] 1 gram PO BID
01/14/24 05:22
Complete Blood Count/With Diff IN AM
Comprehensive Metabolic Panel IN AM
PTT IN AM
Prothrombin Time IN AM
01/15/24 11:00
DC Protocol for Telemetry ONCE
Abnormal Lab Results
01/13/24 01/13/24
09:56 09:57
RBC 2.58 L 10^6/uL
(4.70-6.10)
Hgb 6.9 L* g/dL
(13.0-18.0)
Hct 21.8 L %
(39.0-52.0)
MCH 26.7 L pg
(27.0-31.0)
MCHC 31.7 L g/dL
(33.0-37.0)
RDW 14.9 H %
(11.5-14.5)
Abs Immat Gran (auto) 0.1 H 10^3/uL
(0-0.05)
Absolute Neuts (auto) 6.8 H 10^3/uL
(1.4-6.5)
Absolute Lymphs (auto) 0.9 L 10^3/uL
(1.2-3.4)
Immature Gran % 0.6 H %
(0-0.5)
Neutrophils % 81.6 H %
(42.2-75.2)
Lymphocytes % 10.4 L %
(20.5-51.1)
PT 15.7 H Sec
(11.4-14.6)
APTT 38.9 H Sec
(23.4-35.0)
Sodium 133 L mmol/L
(135-145)
BUN 23 H mg/dl
(9-20)
Glucose 124 H mg/dl
(70-99)
Total Bilirubin 1.5 H mg/dl
(0.2-1.3)
AST 76 H U/L
(17-59)
ALT 51 H U/L
(0-50)
Alkaline Phosphatase 392 H U/L
(38-126)
Crossmatch IS Only See Detail
01/13/24 09:56
01/13/24 09:56
Vital Signs
Initial and Last Documented VS:
Initial Vital Signs
Temp Pulse Resp BP Pulse Ox
97.6 F 114 20 123/83 99
01/13/24 09:38 01/13/24 09:38 01/13/24 09:38 01/13/24 09:38 01/13/24 09:38
Last Documented Vital Signs
Temp Pulse Resp BP Pulse Ox
99.2 F 98 16 121/74 94
01/14/24 15:48 01/14/24 15:48 01/14/24 15:48 01/14/24 15:48 01/14/24 15:48
MDM/Problems Addressed
Differential Diagnosis Includes:
GI bleed, PNA
MDM/Problems Addressed:
63-year-old male with history of HTN, HLD, GERD, CVA 2000, admitted 12/17-12/20/23 for upper GI bleed (Endoscopy showed esophageal ulcer along with mucosal changes suspicious for long segment Mcgarry's esophagus), Esophagitis with bleed 12/2023, bleeding
gastric ulcer 2002, ex smoker presents stating he's been increasingly SOB over past 2 days. He noted blood in his sputum and vomited once today a 'little bit of dark blood.' Denies chest pain. Has some epigastric pain. Notes no change in color of
stools.
Afebrile, NAD
Right lung with diminished BS throughout, L lung CTA
Epigastric tenderness, Stool heme positive
10:25 AM
EKG: Normal sinus rhythm, mildly prolonged QT
CBC: Hemoglobin 6.9
CMP: Liver enzymes trending up
Blood consent signed and scanned into chart
Hospitalist notified of admission
CXR result pending
*EKG
EKG Intrepretation Date: 01/13/24
Interpretation: abnormal
Rate: normal
Rhythm: sinus
[place]: normal axis
Interval: long QT
QRS Pattern: normal QRS
Ischemia: no ischemia
*Critical Care Note
Total Time (30-74mins, 75-104mins- exclusive of procedures): Not Applicable
ED Attending Note
-
Portions of this chart may have been created with voice recognition software.� Occasional wrong word or��sound alike� substitutions may have occurred due to the inherent limitations of voice recognition software.
Discharge Plan
Departure
Patient Disposition: Admit
Date of Disposition: 01/13/24
Time of Disposition: 10:23
Admit to: Med/Surg
Presentation/result/management discussed w/ accepting MD/DO: Hospitalist
Condition: Fair
Discharge Problem:
GI bleed, Hemoptysis
Interventions
Interventions:
*Risk Screen - Suicide Last Done: 01/13/24 09:38
*General Assessment Last Done: 01/13/24 09:58
*Neglect/Abuse Screening Last Done: 01/13/24 09:38
ED- Fall Risk Assessment Last Done: 01/13/24 09:58
*ED COVID-19 Vaccine History Last Done: 01/13/24 09:38
*Nursing Disposition Last Done: 01/13/24 12:59
ED- Cardiac Assessment Last Done: 01/13/24 09:58
ED- Pulmonary Assessment Last Done: 01/13/24 09:58
Discharge Date and Time
Discharge Date/Time: 01/13/24 13:17
[2024-01-13 10:11] LABS: % Basophils 0.2 % (0-2); % Eosinophils 0.4 % (0-6); % Immature Granulocytes 0.6 % (0-0.5); % Lymphocytes 10.4 % (20.5-51.1); % Monocytes 6.8 % (1.7-9.3); % Neutrophils 81.6 % (42.2-75.2); Absolute Immature Granulocytes 0.1 10^3/uL (0-0.05); Absolute Lymphocytes 0.9 10^3/uL (1.2-3.4); Absolute Monocytes 0.6 10^3/uL (0.1-0.6); Absolute Neutrophils 6.8 10^3/uL (1.4-6.5); Hematocrit 21.8 % (39.0-52.0); Mean Corp Hgb Conc. 31.7 g/dL (33.0-37.0); Mean Corpuscular Hgb 26.7 pg (27.0-31.0); Mean Corpuscular Volume 84.5 fL (80.0-94.0); Mean Platelet Volume 8.7 fL (7.4-10.4); Nucleated Red Blood Cells % 0 % (-); Platelet Count 354 10^3/uL (130-400); Red Blood Cell Count 2.58 10^6/uL (4.70-6.10); Red Cell Dist. Width 14.9 % (11.5-14.5); White Blood Cell Count 8.3 10^3/uL (4.8-10.8)
[2024-01-13 10:19] LABS: Hemoglobin 6.9 g/dL (13.0-18.0)
[2024-01-13] MEDS: NSS 1000 IV (10:19)
[2024-01-13 10:22] LABS: INR 1.27; PT 15.7 Sec (11.4-14.6)
[2024-01-13 10:24] LABS: APTT 38.9 Sec (23.4-35.0)
[2024-01-13] MEDS: PROTONIX IV 80 MG IV (10:29)
[2024-01-13] MEDS: PROTONIX 100 IV (10:29)
[2024-01-13 10:30] LABS: ALT (SGPT) 51 U/L (0-50); AST (SGOT) 76 U/L (17-59); Albumin 3.8 g/dl (3.5-5.0); Alkaline Phosphatase 392 U/L (38-126); Blood Urea Nitrogen 23 mg/dl (9-20); Calcium 9.3 mg/dl (8.4-10.2); Carbon Dioxide 22 mmol/L (22-30); Chloride 100 mmol/L (98-107); Glucose 124 mg/dl (70-99); Lipase 70 U/L (23-300); Potassium 4.3 mmol/L (3.5-5.1); Sodium 133 mmol/L (135-145); Total Bilirubin 1.5 mg/dl (0.2-1.3); Total Protein 6.7 g/dl (6.3-8.2); eGFR > 60.00
[2024-01-13] MEDS: OMNIPAQUE 50 ML PO (12:36)
--- NOTE | 2024-01-13 13:15 | CON.GI ---
Consultation
-
Date/Time Consultation Performed: 01/13/24
Performing Provider: Dallin Diana MD
Reason for Consultation: anemia
Medical History
Chief Complaint / HPI
Chief Complaint: weakness
History of Present Illness:
The patient is a 63-year-old male with past medical history as noted presents with increasing weakness. He was recently hospitalized with anemia and melena, and endoscopy showed severe esophagitis and esophageal ulcer, that was clean-based. He was
discharged and following that he had 1 melenic stool the day after though since then has had brown stools. Has been overall feeling better, on PPI twice daily since then with really no significant heartburn, dysphagia or odynophagia. He does admit
to coughing with blood-tinged sputum. There is a question about emesis this morning with questionable blood. Denies any abdominal pain, fever or chills. He has been having progressive dyspnea on exertion over the past month.
Past Medical History
Past Medical History: Other (CVA, HTN, GERD, esophagitis, esophageal ulcer)
Past Surgical History: None
Social History
Tobacco: Former Smoker
Alcohol: None
Family History
Family History: Reviewed & Not Pertinent
Allergies / Home Medications
Allergy/AdvReac Type Severity Reaction Status Date / Time
No Known Allergies Allergy Verified 01/13/24 09:43
�Medication �Instructions �Recorded
amlodipine 10 mg tablet 10 mg PO DAILY Blood Pressure 12/18/23
ezetimibe 10 mg tablet 10 mg PO DAILY High Cholesterol 12/18/23
hydrochlorothiazide 12.5 mg tablet 12.5 mg PO DAILY Fluid 12/18/23
Retention/Swelling
lisinopril 40 mg tablet 40 mg PO DAILY Blood Pressure 12/18/23
rosuvastatin 5 mg tablet 5 mg PO DAILY High Cholesterol 12/18/23
acetaminophen 325 mg tablet 650 mg PO TIDPRN PRN mild pain 01/13/24
(Tylenol)
aspirin 81 mg tablet,delayed 81 mg PO DAILY Blood Clot 01/13/24
release Prevention/Tx
pantoprazole 40 mg tablet,delayed 40 mg PO BID Gastrointestinal Issue 01/13/24
release
sucralfate 1 gram tablet 1 g PO BID Gastrointestinal Issue 01/13/24
Review of Systems
-
All other systems: A 12 pt ROS was Negative except as stated above in HPI
Vital Signs
Temp Pulse Resp BP Pulse Ox
98 F 82 16 129/79 96
01/13/24 11:55 01/13/24 11:55 01/13/24 11:55 01/13/24 11:55 01/13/24 11:55
Physical Exam
Exam
General: NAD, appears older than stated age
HEENT: MMM, anicteric, no lymphadenopathy
Heart: Regular, no murmurs
Lungs: CTA bilaterally
Abdomen: normal bowel sounds, soft, no tenderness, no rebound or guarding, no masses, bruits or ascites
Extremeties: no edema
Skin: no rashes
Results
WBC 8.3 10^3/uL (4.8-10.8) 01/13/24 09:56
Hgb 6.9 g/dL (13.0-18.0) L* 01/13/24 09:56
Hct 21.8 % (39.0-52.0) L 01/13/24 09:56
MCV 84.5 fL (80.0-94.0) 01/13/24 09:56
Plt Count 354 10^3/uL (130-400) 01/13/24 09:56
Absolute Neuts (auto) 6.8 10^3/uL (1.4-6.5) H 01/13/24 09:56
PT 15.7 Sec (11.4-14.6) H 01/13/24 09:57
INR 1.27 01/13/24 09:57
APTT 38.9 Sec (23.4-35.0) H 01/13/24 09:57
Sodium 133 mmol/L (135-145) L 01/13/24 09:56
Potassium 4.3 mmol/L (3.5-5.1) 01/13/24 09:56
Chloride 100 mmol/L (98-107) 01/13/24 09:56
Carbon Dioxide 22 mmol/L (22-30) 01/13/24 09:56
BUN 23 mg/dl (9-20) H 01/13/24 09:56
Creatinine 1.0 mg/dL (0.7-1.3) 01/13/24 09:56
Calcium 9.3 mg/dl (8.4-10.2) 01/13/24 09:56
Total Bilirubin 1.5 mg/dl (0.2-1.3) H 01/13/24 09:56
AST 76 U/L (17-59) H 01/13/24 09:56
ALT 51 U/L (0-50) H 01/13/24 09:56
Alkaline Phosphatase 392 U/L (38-126) H 01/13/24 09:56
Lipase 70 U/L (23-300) 01/13/24 09:56
Diagnostic Image Results:
CXR:
IMPRESSION: Innumerable bilateral pulmonary nodular opacities suspicious for metastases. This could be further evaluated with follow-up contrast-enhanced CT chest.
Prior GI Procedures:
EGD:
Colonoscopy:
Assessment / Plan
-
1. Anemia: With recent admission for GI bleeding from severe esophagitis and esophageal ulcer, though no melena since then and has been on PPI. It is very concerning given his chest x-ray results and hemoptysis for underlying malignancy, and his
anemia could be more related to pulmonary blood loss. At this point, he is feeling better as he is getting transfused. Discussed with residents, would recommend CT of the chest abdomen and pelvis given chest x-ray findings. Will plan EGD tomorrow
to assess for healing of esophagitis and rule out underlying esophageal malignancy. Pending the results of that and CT scan may need to consider colonoscopy though he is not sure that he would want to proceed with that. Will continue clear liquids
today and PPI and close observation.
-
-
Thank you for consultation and allowing me to participate in the patient's care. Please call the jewelry salesperson GI physician during the after hours with any questions or concerns.
[2024-01-13] MEDS: ZESTRIL 40 MG PO (16:57)
[2024-01-13] MEDS: ORETIC 12.5 MG PO (16:57)
[2024-01-13] MEDS: TYLENOL 650 MG PO ×2 (16:57→22:31)
[2024-01-13] MEDS: ZETIA 10 MG PO (16:58)
[2024-01-13] MEDS: NORVASC 10 MG PO (16:58)
[2024-01-13] MEDS: CRESTOR 5 MG PO (16:58)
--- NOTE | 2024-01-13 17:10 | HPS.HSE ---
Addendum entered and electronically signed by Toribio Quispe MD 01/13/24 23:36:
Attending Addendum-
I performed a history and physical exam of the patient and discussed his management with the resident. I reviewed the resident's note and agree with the documented findings and plan of care CC/HPI- patient reports SOB fatigue and mild hemotysis with
possible hematemesis. Full 12 point ROS reviewed and negative except as documented Exam- vitals reviewed in EMR GEN-NAD heart RRR lungs clear abd soft LE trace edema
# Hemoptysis-
- Very concerning for malignancy
- added chest/abd/pelvis 01/12- Innumerable widespread bilateral pulmonary nodules and innumerable widespread hepatic low-attenuation lesions suspicious for malignancy, findings could overall represent metastatic disease. Primary lung malignancy
cannot be differentiated.
- c/s onc
- will likely need pulm eval as well
# Acute Blood Loss anemia possible GI bleed
- transfuse 2 units prbc
- GI c/s appreciated, h/o esoph ulcer and esophagitis (EGD 12/18)
- GBBS-10 high risk
- EGD in am
- protonix bolus given cont IV BID
- follow H and H closely
- NPO pMN
# Hyponatremia-
- hypovolemia
- home HCTZ
- cont IVF
- repeat BMP in am
# Acute Transaminitis-
- repeat in am
# HTN-
- cont meds amlodipine and lisinopril
# HLD-
- cont crestor
# H/O CVA-
- cont asa
DVT p- scds
Time spent coordinating care, review of plan of care with resident, personally reviewed previous records in EMR, med rec, labs, radiology, d/w nursing, and GI �- 79 mins
Original Note:
Family Physician
-
Family Physician: Victorina Senior
Chief Complaint
-
Anemia requiring transfusion
History of Present Illness
63-year-old male with a past medical history of hypertension GERD CVA 2000 was recently admitted 12/17-12/19 for upper GI bleed, esophageal ulcer and Mcgarry's esophagus. He presented to the emergency department again on 01/13/2024, with increasing
shortness of breath and fatigue over the last 2 to 3 weeks. He also endorses having some dark red blood in his vomit this a.m. and coughing up some blood a couple times a day in the morning.
While in the ED, his CBC showed Hb of 6.9 and a PT of 15.7 and chest x-ray reported innumerable bilateral pulmonary opacities suspicious of metastasis. Patient received 2 units PRBC and GI was consulted. Patient denies chest pain, abdominal pain,
nausea, vomiting, diarrhea, urinary symptoms. Patient reports that he had only 1 episode of black stools post discharge from the hospital which resolved. He also reported 1 episode of dark vomit but not sure if it was blood. He endorses dizziness
but denies chest pain, abdominal pain, nausea, vomiting, diarrhea, urinary symptoms, and palpitations patient was admitted for further evaluation and management.
Medical History
Past Medical History
Past Medical History: Reports CVA, HTN and Hypercholesterolemia
Additional Past Medical History:
Upper GI bleeding secondary to esophageal ulcer exacerbated by nonsteroidal use, Essential hypertension, hyperlipidemia, history of stroke, cervical arthritis
Past Surgical History: Reports None
Social History
Tobacco: Former Smoker (20 years at 2 packs a day stopped in 2000)
Alcohol: Occasional
Drug: None
Living: With Family
Family History
Family History: Not pertinent
Allergies / Home Medications
Allergies reflects when Allergies were last updated in [facility].
Home Medications with original date entered in [facility]
Allergy/Medication List:
no known allergies
Acetaminophen 650 mg p.o. 3 times daily as needed
Amlodipine 10 mg p.o. daily
Aspirin 81 mg p.o. daily
Ezetimibe 10 mg p.o. daily
Chlorothiazide 12.5 mg p.o. daily
Lisinopril 40 mg p.o. daily
Pantoprazole 40 mg p.o. daily twice daily
rosuvastatin 5 mg p.o. daily
Sucralfate 1 g p.o. twice a day
Review of Systems
-
History Source: Patient
A 12 point ROS was completed and negative except as noted: Yes
Constitutional: Denies Fever, Night Sweats or Chills
EENT: Reports Mouth Pain
Respiratory: Reports Trouble Breathing; Denies Cough or Hemoptysis
Cardiac: Reports No Symptoms; Denies Chest Pain
Abdomen/GI: Reports Vomiting (bloody vomit); Denies Bloody Stools or Black Stools
: Reports No Symptoms
Musculoskeletal: Reports No Symptoms
Neurological: Reports No Symptoms
Psych: Reports No Symptoms
Physical Exam
Vital Signs
Vital Signs
Temp Pulse Resp BP Pulse Ox
98.1 F 85 18 121/73 95
01/13/24 15:00 01/13/24 16:58 01/13/24 15:00 01/13/24 16:58 01/13/24 15:00
Physical Exam
General: No Apparent Distress
Respiratory: Clear
Cardiac: S1/S2 and Regular Rhythm
GI: Soft and Tender
Skin: Warm
Neuro: AO x 3
Psych: Calm
Laboratory Results
-
01/13/24 09:56
01/13/24 09:56
Laboratory Results
PT 15.7 Sec (11.4-14.6) H 01/13/24 09:57
INR 1.27 01/13/24 09:57
APTT 38.9 Sec (23.4-35.0) H 01/13/24 09:57
Total Bilirubin 1.5 mg/dl (0.2-1.3) H 01/13/24 09:56
AST 76 U/L (17-59) H 01/13/24 09:56
ALT 51 U/L (0-50) H 01/13/24 09:56
Alkaline Phosphatase 392 U/L (38-126) H 01/13/24 09:56
Lipase 70 U/L (23-300) 01/13/24 09:56
Data Reviewed
-
Diagnostic Radiology: Image Personally Visualized and interpreted, Report Reviewed by me and Discussed with Physician
CT Scan: Image Personally Visualized and interpreted, Report Reviewed by me and Discussed with Physician
Lab Data: Labs Reviewed by me, Discussed with Physician and Discussed with Nurse
Impression/Plan
-
Assessment: 63-year-old male was recently admitted 12/17-12/19 for upper GI bleed, esophageal ulcer and Mcgarry's esophagus. He presented to the emergency department again on 01/13/2024, with increasing shortness of breath and fatigue over the last 2 to
3 weeks and a hemoglobin of 6.9.
IMPRESSION:
GI bleed
Lung nodules
Hypertension
Hyperlipidemia
PLAN:
#GI bleed
-Patient presented with hemoglobin of 6.9, likely due to occult chronic GI bleed vs acute pathology.
-S/p 2U PRBC
-GI consult for potential EGD in a.m.
-Consider colonoscopy
-Monitor H&H
-Transfuse if below 7
#Lung Nodules
-CXR 01/13/2024 with bilateral interstitial opacities, consistent with bilateral pulmonary nodules confirmed on CT chest with and without contrast
-CT chest 01/13/2024 with innumerable lung nodules, likely metastatic malignancy
-Oncology consulted
#Hypertension
-Takes lisinopril 40, hydrochlorothiazide 12.5, and amlodipine 10 at home.
Continue home meds
#Hyperlipidemia
-Takes rosuvastatin 5 and ezetimibe 10 at home.
Continue home meds
[2024-01-13] MEDS: PROTONIX IV 40 MG IV (22:17)
[2024-01-13] MEDS: CARAFATE 1 GRAM PO (22:17)
[2024-01-13] MEDS: NSS (PRESERVATIVE FREE) 10 ML IV (22:20)
[2024-01-14] VITALS (13 sets, daily range): BP systolic 16–136; BP diastolic 62–83; PULSE 92–97
[2024-01-14 05:46] LABS: % Basophils 0.6 % (0-2); % Eosinophils 0.8 % (0-6); % Immature Granulocytes 0.8 % (0-0.5); % Lymphocytes 10.5 % (20.5-51.1); % Monocytes 6.8 % (1.7-9.3); % Neutrophils 80.5 % (42.2-75.2); Absolute Basophils 0.1 10^3/uL (0-0.2); Absolute Eosinophils 0.1 10^3/uL (0-0.7); Absolute Immature Granulocytes 0.1 10^3/uL (0-0.05); Absolute Lymphocytes 0.8 10^3/uL (1.2-3.4); Absolute Monocytes 0.5 10^3/uL (0.1-0.6); Absolute Neutrophils 6.3 10^3/uL (1.4-6.5); Hematocrit 24.7 % (39.0-52.0); Hemoglobin 8.1 g/dL (13.0-18.0); Mean Corp Hgb Conc. 32.8 g/dL (33.0-37.0); Mean Corpuscular Hgb 27.5 pg (27.0-31.0); Mean Corpuscular Volume 83.7 fL (80.0-94.0); Mean Platelet Volume 8.9 fL (7.4-10.4); Nucleated Red Blood Cells % 0 % (-); Platelet Count 272 10^3/uL (130-400); Red Blood Cell Count 2.95 10^6/uL (4.70-6.10); Red Cell Dist. Width 14.4 % (11.5-14.5); White Blood Cell Count 7.8 10^3/uL (4.8-10.8)
[2024-01-14 06:01] LABS: INR 1.29; PT 15.9 Sec (11.4-14.6)
[2024-01-14 06:11] LABS: ALT (SGPT) 66 U/L (0-50); AST (SGOT) 90 U/L (17-59); Albumin 3.4 g/dl (3.5-5.0); Alkaline Phosphatase 418 U/L (38-126); Blood Urea Nitrogen 15 mg/dl (9-20); Carbon Dioxide 21 mmol/L (22-30); Chloride 101 mmol/L (98-107); Estimated Creatinine Clearance 84 ml/min; Glucose 98 mg/dl (70-99); Potassium 4.1 mmol/L (3.5-5.1); Sodium 131 mmol/L (135-145); Total Bilirubin 1.8 mg/dl (0.2-1.3); Total Protein 6.1 g/dl (6.3-8.2); eGFR > 60.00
--- NOTE | 2024-01-14 10:18 | W.PN.HOSP.TC ---
Addendum entered and electronically signed by Toribio Quispe MD 01/15/24 00:19:
Attending Addendum-
I saw and evaluated the patient. I reviewed the resident�s note and agree with findings and plan as documented in the resident�s note. Patient continues to have hemotysis. Feels SOB on minimal exertion. Full 12 point ROS reviewed and negative except
as documented Exam- vitals reviewed in EMR GEN-NAD heart RRR lungs clear abd soft LE trace edema
# Hemoptysis-
- likely from met lung disease
- chest/abd/pelvis 01/12- Innumerable widespread bilateral pulmonary nodules and innumerable widespread hepatic low-attenuation lesions suspicious for malignancy, findings could overall represent metastatic disease. Primary lung malignancy cannot be
differentiated.
- c/s onc- input appreciated- IRAD c/s for liver bx
- appreciate pulm input
# Acute on chronic anemia
- possibly malignancy related
- s/p transfuse 2 units prbc 01/11
- GI c/s appreciated, h/o esoph ulcer and esophagitis (EGD 12/18)
- EGD 01/13- - [place]-colored mucosa with focal area of nodularity
in the distal esophagus as described above. Biopsied.
- Small hiatal hernia.
- Normal examined duodenum.
- protonix bid
- follow CBC daily
- NPO pMN
# Hyponatremia-
- hypovolemia
- DC'd HCTZ
- cont IVF
- repeat BMP in am
# Acute Transaminitis-
- increased
- possibly from malignancy
- check hepatitis panel
# HTN-
- cont meds amlodipine and lisinopril
# HLD-
- cont crestor
# H/O CVA-
- cont asa
DVT p- scds
Time spent coordinating care, review of plan of care with resident, personally reviewed previous records in EMR, med rec, labs, radiology, d/w nursing, and consultants �- 57 mins
Original Note:
Today's Communication/Plan
-
H&H every 6 hours, transfuse Hb<7
IR consult for tentative liver biopsy
Home BP meds with holding parameters
Assessment / Plan
Assessment / Plan
Assessment: 63-year-old male with past medical history of GI bleed, esophageal ulcer, Mcgarry's esophagus, recently admitted here 12/17 to 12/19 for upper GI bleed, who presented to the ED on 01/13/2024 with SOB, fatigue and intermittent hemoptysis.
Impression:
Hemoptysis
Acute blood loss anemia
Hyponatremia
Acute transaminitis
Essential hypertension
Hyperlipidemia
Hx of CVA
Assessment and plan:
Hemoptysis
- Likely due to metastatic lung disease vs acute upper GI bleeding
- Prior black stool likely due to swallowed blood vs acute GI bleed.
- CXR 01/13/2024 with Innumerable widespread bilateral pulmonary nodules and innumerable widespread hepatic low-attenuation lesions suspicious for malignancy, findings could overall represent metastatic disease. Primary lung malignancy cannot be
differentiated.
- CT chest/abdomen/pelvis 01/13/2024 with Innumerable widespread bilateral pulmonary nodules and innumerable widespread hepatic low-attenuation lesions suspicious for malignancy, findings could overall represent metastatic disease. Primary lung
malignancy cannot be differentiated.
- Oncology evaluation and recs appreciated.
- Pulmonology recs appreciated
- IR consult for liver biopsy
Acute Blood Loss anemia
- Presentation with Hb 9.6, s/p 2U PRBC, improved to 8.7
- Possibly due to chronic hemoptysis from occult pulmonary hemorrhage vs chronic GI bleeding
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
- EGD with a focal area of nodularity at prior esophageal ulcer site
- GI c/s appreciated
- GBBS-10 high risk
- Continue PPI twice daily
- Follow H&H Q6H
- Transfused with Hb <7
- Advance diet to regular
Hyponatremia
- Likely contraction hyponatremia, could also represent SIADH from metastatic cancer.
- Hold HCTZ
- Give a bolus of IV fluid
- Follow-up with BMP
Acute Transaminitis
- Worsening, likely due to liver pathology
- Monitor BMP
HTN-
- Labile blood pressure
- Continue home antihypertensives with holding parameters
HLD-
- cont crestor
H/O CVA-
- cont asa
DVT p- scds
CODE STATUS: Full code
Anticipated Discharge: > 48 hours
Subjective/Interval History
-
Date of Service: January 14, 2024
No acute events reported overnight. Patient feeling okay today with little SOB and still coughing up blood intermittently. Reports mild suprapubic pain, no urinary symptoms, no chest pain, headaches, or hematochezia.
Objective Data
-
Labs:
Laboratory Results
01/14/24
05:22
WBC 7.8
Hgb 8.1 L
Hct 24.7 L
Plt Count 272 D
PT 15.9 H
INR 1.29
APTT 43.0 H
Sodium 131 L
Potassium 4.1
Chloride 101
Carbon Dioxide 21 L
BUN 15
Creatinine 0.8
Glucose 98
Calcium 9.0
Total Bilirubin 1.8 H
AST 90 H
ALT 66 H
Alkaline Phosphatase 418 H
Vital Signs:
Vital Signs
Temp Pulse Resp BP Pulse Ox
97.6 F 82 16 118/83 93
01/14/24 09:50 01/14/24 10:14 01/14/24 10:14 01/14/24 10:14 01/14/24 10:14
I&O
01/13/24 01/14/24 01/15/24
06:59 06:59 06:59
Intake Total
Balance
Review of Systems
-
History Source: Patient
All other systems: Not reviewed unless documented
Constitutional: Reports No Symptoms; Denies Fever or Night Sweats
EENT: Reports No Symptoms Reported
Respiratory: Reports Hemoptysis and Wheezing
Cardiac: Reports No Symptoms; Denies Chest Pain or Palpitations
Abdomen/GI: Reports No Symptoms; Denies Abdominal Pain, Vomiting, Diarrhea, Constipated or Bloody Stools
Genitourinary: Reports No Symptoms
Neuro: Reports No Symptoms; Denies Headache or Lightheadedness
Physical Exam
-
General: Well Developed, Well Nourished, No Apparent Distress and Conversant
HEENT: Normocephalic and Atraumatic; Negative Thrush
Respiratory: Clear to Auscultation, Wheezes and Non Labored Respirations; Negative Rhonchi or Crackles
Cardiac: Regular Rhythm and S1/S2; Negative Murmur or Rub
GI: Soft, Nontender, Nondistended and Normal Bowel Sounds
Musculoskeletal: No Clubbing, No Cyanosis and No Edema
Skin: Warm
Neuro: Awake, Alert, Oriented and AO x 3
Psych: Calm and Intact Judgement/Insight
Data Reviewed
-
Diagnostic Radiology: Image personally visualized and interpreted, Report Reviewed by me and Discussed with Physician
CT Scan: Image personally visualized and interpreted, Report Reviewed by me and Discussed with Physician
Labs: Labs Reviewed by me and Discussed with Physician
Old Records: Reviewed
[2024-01-14] MEDS: NSS (PRESERVATIVE FREE) 10 ML IV ×2 (10:38→22:10)
[2024-01-14] MEDS: PROTONIX IV 40 MG IV ×2 (10:38→22:11)
[2024-01-14] MEDS: CARAFATE 1 GRAM PO ×2 (10:38→22:10)
[2024-01-14] MEDS: ZETIA 10 MG PO (10:38)
[2024-01-14] MEDS: CRESTOR 5 MG PO (10:39)
[2024-01-14 11:17] LABS: Hematocrit 26.8 % (39.0-52.0); Hemoglobin 8.7 g/dL (13.0-18.0)
--- NOTE | 2024-01-14 12:30 | CON.PUL ---
Consultation
Consultation Request
Date/Time Consultation Requested: 01/14/2024814
Date/Time Consultation Performed: 01/14/2024 - 1101
Requesting Provider: Dr. Cardenas
Performing Provider: Dr. Lara
Reason for Consultation: Hemoptysis
Medical History
-
Chief Complaint: Spitting up blood + SOB
History of Present Illness:
63-year-old male former tobacco smoker with a past medical history of UGIB (2002), hypertension, hypercholesterolemia, CVA (2000), cervical disc disease, GERD with esophagitis and hiatal hernia presents with hemoptysis + shortness of breath.
Patient recently hospitalized here from 12/17 - 12/20/2023 due to upper GI bleed after presenting with melena. He was taking ibuprofen for toothache then and was seen by GI who performed EGD on 12/19/2023 showing LA grade a esophagitis with an esophageal
ulcer without any active bleeding, with long segment Mcgarry's esophagus, 5 cm hiatal hernia and no explanation for his melena in the stomach up to the second portion of the duodenum. He now presents with acute anemia with Hb 6.9, and
transaminitis. CXR shows innumerable bilateral lung nodules, and CT chest, abdomen, pelvis confirmed innumerable widespread bilateral lung nodules with bilateral hilar/mediastinal lymphadenopathy and innumerable low-attenuation lesions seen in the
liver with the largest conglomerate lobulated area in the left lobe measuring >7 cm. There was question about him having hematemesis on 01/13/2024, he was given IVF with NS 0.9% X1 liter, in addition to PPI drip. GI was consulted, and he had a repeat
EGD today showing a salmon-colored mucosa with focal area of nodularity in the distal esophagus within normal examined duodenum with a small hiatal hernia. Due to his chest imaging findings, pulmonary service now consulted for additional
management/recommendations.
When I saw the patient he was in bed in no acute distress on room air breathing comfortably. He is still coughing up blood-tinged sputum. He says that his bloody phlegm has been ongoing for about 1 month and he also has been feeling short of
breath during the similar time period. He had about 25 pound weight loss over the last 1.5 months, and denies night sweats. He quit smoking back in 2000 and has about a [id number] history. He denies taking any inhalers at home or carrying a
prior diagnosis of any lung disease. He currently denies headache, chest pain, abdominal pain, nausea, fevers or chills.
PMHx: Hypertension, hyperlipidemia, history of CVA, history of Mcgarry esophagus, hiatal hernia, GERD with esophagitis (esophagitis seen on EGD from 12/19/2023), cervical arthritis, history of GI bleed, former tobacco use disorder
PSHx: Noncontributory
Past Medical History
Past Medical History: Other (Above as per HPI)
Past Surgical History: Other (Above as per HPI)
Social History
Tobacco: Former Smoker (Quit in 2000 with 2 PPD X 30 years)
Alcohol: Occasional
Drug: None
Family History
Family History: Reviewed & Not Pertinent
Allergies / Home Medications
Allergies
Allergy/AdvReac Type Severity Reaction Status Date / Time
No Known Allergies Allergy Verified 01/13/24 09:43
Home Medications
�Medication �Instructions �Recorded �Confirmed �Last Taken �Type
amlodipine 10 mg tablet 10 mg PO DAILY Blood Pressure 12/18/23 01/13/24 01/12/24 History
ezetimibe 10 mg tablet 10 mg PO DAILY High Cholesterol 12/18/23 01/13/24 01/12/24 History
hydrochlorothiazide 12.5 mg tablet 12.5 mg PO DAILY Fluid 12/18/23 01/13/24 01/12/24 History
Retention/Swelling
lisinopril 40 mg tablet 40 mg PO DAILY Blood Pressure 12/18/23 01/13/24 01/12/24 History
rosuvastatin 5 mg tablet 5 mg PO DAILY High Cholesterol 12/18/23 01/13/24 01/12/24 History
acetaminophen 325 mg tablet 650 mg PO TIDPRN PRN mild pain 01/13/24 01/13/24 01/13/24 History
(Tylenol)
aspirin 81 mg tablet,delayed 81 mg PO DAILY Blood Clot 01/13/24 01/13/24 01/12/24 History
release Prevention/Tx
pantoprazole 40 mg tablet,delayed 40 mg PO BID Gastrointestinal Issue 01/13/24 01/13/24 01/13/24 History
release
sucralfate 1 gram tablet 1 g PO BID Gastrointestinal Issue 01/13/24 01/13/24 01/13/24 History
Review of Systems
-
History Source: Patient
All other systems: Negative unless noted
Vitals / Labs / Diagnostic Testing
Vital Signs
Temp Pulse Resp BP Pulse Ox
97.6 F 78 16 107/64 97
01/14/24 09:50 01/14/24 12:06 01/14/24 12:06 01/14/24 12:06 01/14/24 12:06
Lab Data
01/14/24 05:22
Laboratory Results
01/14/24
05:22
PT 15.9 H
INR 1.29
APTT 43.0 H
Diagnostic Testing:
Physical Exam
-
HEENT: Normocephalic and Anicteric
Cardiovascular: S1/S2, Peripheral Edema (Negative) and Other (Tachycardic)
Respiratory: Wheeze (Negative), Rhonchi (Negative), Non-Labored Respirations and Other (Coarse breath sounds heard bilaterally)
GI: Soft, Non Distended, Non Tender and Normal Bowel Sounds
Neurology: Awake and Alert
Skin: Warm and Dry
General: Comfortable, Fever (Negative) and Chills (Negative)
Assessment
-
Assessment: 63-year-old male former tobacco smoker with a past medical history of UGIB (2002), hypertension, hypercholesterolemia, CVA (2000), cervical disc disease, GERD with esophagitis and hiatal hernia presents with hemoptysis + shortness of
breath. Patient recently hospitalized here from 12/17 - 12/20/2023 due to upper GI bleed after presenting with melena. He was taking ibuprofen for toothache then and was seen by GI who performed EGD on 12/19/2023 showing LA grade a esophagitis with an
esophageal ulcer without any active bleeding, with long segment Mcgarry's esophagus, 5 cm hiatal hernia and no explanation for his melena in the stomach up to the second portion of the duodenum. He now presents with acute anemia with Hb 6.9, and
transaminitis. CXR shows innumerable bilateral lung nodules, and CT chest, abdomen, pelvis confirmed innumerable widespread bilateral lung nodules with bilateral hilar/mediastinal lymphadenopathy and innumerable low-attenuation lesions seen in the
liver with the largest conglomerate lobulated area in the left lobe measuring >7 cm. There was question about him having hematemesis on 01/13/2024, he was given IVF with NS 0.9% X1 liter, in addition to PPI drip. GI was consulted, and he had a repeat
EGD on 01/14/2024 showing a salmon-colored mucosa with focal area of nodularity in the distal esophagus within normal examined duodenum with a small hiatal hernia. Due to his chest imaging findings, pulmonary service now consulted for additional
management/recommendations.
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
Impression:
#Hemoptysis likely due to metastatic pulmonary disease
#Abnormal CT chest with innumerable pulmonary nodules and mediastinal/hilar lymphadenopathy concerning for metastatic disease
#Innumerable low-attenuation lesions in the liver concerning for metastatic disease
#Suspected COPD based on initial evaluation
#Hx of UGIB with possible hematemesis on admission s/p repeat EGD on 01/14/2024
#Hiatal hernia
#GERD with esophagitis and suspected Mcgarry's esophagus
#Hyponatremia � likely paraneoplastic
#Transaminitis with hyperbilirubinemia likely due to metastatic liver disease; ALp also elevated (?mets to bone)
#Left renal calculi
#Bilateral subcentimeter low-attenuation renal lesions too small to characterize - renal malignancy cannot be excluded
Plan:
- Patient has innumerable lesions in both his lung and liver as well as bilateral hilar/mediastinal lymphadenopathy
- Easiest target would be liver biopsy to recommend consultation IR as well as oncology
- Monitor hemoptysis with disposable cup and contact pulmonary on-call immediately for hemoptysis >25-50 cc/h
- If hemoptysis worsens then we will start nebulized tranexamic acid 500mg TID
- Maintain SpO2 >90-94% with supplemental O2 as needed
- Due to his significant tobacco smoking history with [id number], I suspect he has underlying COPD, although he does not carry a formal diagnosis of this with no PFTs on file and he does not take inhalers at home
-Considering he is short of breath, I will start DuoNebs BID for now with prn doses for in between; he should be DC'd home on Spiriva handihaler and should see us in office for full PFTs and COPD management
- GI consulted appreciated for possible hematemesis s/p EGD today showing no signs of active GI bleed in the stomach, esophagus or up to second part of duodenum
- Follow-up pathology which was taken from distal esophagus
- Maintain large-bore IV x 2
- Hold antiplatelets/anticoagulants for now until Hb is stable and hemoptysis resolved
- Trend Hb with serial CBC at least every 6-8 hours with transfusion to keep Hb >7g/dL; keep plt>50k and INR<1.8
- Trend LFTs
- Incentive spirometer encouraged
- Replete electrolytes with K>4, Mg>2
- Maintain euglycemia with goal BG >100 and <180
- prn nebulized bronchodilators
- DVT ppx
Pulmonary service will continue to follow along.
Total time spent today was 55 minutes for this encounter. Time includes reviewing laboratory test/imaging results, reviewing pertinent medical records, obtaining and reviewing medical history, performing an appropriate exam, ordering medications,
tests and procedures. Time also includes documentation of this encounter, coordinating patient care and communicating with other healthcare professionals. Total time does not include separately billed tests performed on this date of service.
Data:
CT Chest/Abd/pelvis with IV Contrast 01-13-2024:
Innumerable widespread bilateral pulmonary nodules and innumerable widespread hepatic low-attenuation lesions suspicious for malignancy, findings could overall represent metastatic disease. Primary lung malignancy cannot be differentiated.
Bilateral hilar and mediastinal lymphadenopathy.
No significant retroperitoneal lymphadenopathy. Indeterminate 1.4 cm right lower quadrant mesenteric lymph node.
Likely small hiatal hernia.
Small bilateral renal simple cysts as well as additional bilateral subcentimeter low-attenuation renal lesions too small to characterize. Renal malignancy cannot be excluded. 1Small left renal calculi.
Indeterminate 1.3 cm right adrenal lesion.
Likely coronary artery calcifications.
No intestinal obstruction or free air. Distal colon markedly limited without oral contrast with sigmoid diverticulosis noted. Unfortunately, nonobstructing distal colonic mass cannot be entirely excluded.
--- NOTE | 2024-01-14 12:43 | CON.ONC ---
Impression
Impression
Apparent widespread malignancy involving the lungs and liver, no clear primary
Anemia, history of GI bleeding
Plan
Plan
I have consulted interventional radiology for liver biopsy. Further studies ordered regarding his anemia. We will continue to follow.
Patient History
History of Present Illness
Consult from Dr. Rooney regarding apparent malignancy
This 63-year-old man was admitted with anemia and apparent malignancy. He had noted melena about 4 weeks ago, and underwent an EGD, which showed esophagitis and possible Mcgarry's esophagus. No biopsies were taken. He did not undergo a
colonoscopy. Over the previous several days he has noted progressive shortness of breath and came back to the emergency room. He was found to have multiple nodules in the liver and lungs. He underwent a repeat EGD which showed an extensive
salmon-colored area in the distal esophagus, biopsy is pending. He is lost 25 pounds in weight. He has noted no other changes in his bowels. He denies any pains. He has no DESK INTERVIEWER symptoms.
Past-Medical/Surgical History
He has previously been in good health. No previous surgeries, especially, no previous skin cancers removed.
Social history: He stopped smoking in 2000 following a small CVA. 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
Family history is noncontributory.
Patient Medication
�Medication �Instructions �Recorded �Confirmed �Last Taken �Type
amlodipine 10 mg tablet 10 mg PO DAILY Blood Pressure 12/18/23 01/13/24 01/12/24 History
ezetimibe 10 mg tablet 10 mg PO DAILY High Cholesterol 12/18/23 01/13/24 01/12/24 History
hydrochlorothiazide 12.5 mg tablet 12.5 mg PO DAILY Fluid 12/18/23 01/13/24 01/12/24 History
Retention/Swelling
lisinopril 40 mg tablet 40 mg PO DAILY Blood Pressure 12/18/23 01/13/24 01/12/24 History
rosuvastatin 5 mg tablet 5 mg PO DAILY High Cholesterol 12/18/23 01/13/2401/11/24 History
acetaminophen 325 mg tablet 650 mg PO TIDPRN PRN mild pain 01/13/24 01/13/24 01/13/24 History
(Tylenol)
aspirin 81 mg tablet,delayed 81 mg PO DAILY Blood Clot 01/13/24 01/13/24 01/12/24 History
release Prevention/Tx
pantoprazole 40 mg tablet,delayed 40 mg PO BID Gastrointestinal Issue 01/13/24 01/13/24 01/13/24 History
release
sucralfate 1 gram tablet 1 g PO BID Gastrointestinal Issue 01/13/24 01/13/24 01/13/24 History
Active Medications
Generic Name Dose Route Start Last Admin
Trade Name Freq PRN Reason Stop Dose Admin
Acetaminophen 650 mg 01/13/24 13:13 01/13/24 22:31
Acetaminophen 325 Mg Tablet PO 02/10/24 13:12 650 mg
TIDPRN PRN Administration
mild pain
Amlodipine Besylate 10 mg 01/13/24 15:00 01/13/24 16:58
Amlodipine 10 Mg Tablet PO 02/10/24 14:59 10 mg
DAILY MAAME Administration
Ezetimibe 10 mg 01/13/24 15:00 01/14/24 10:38
Ezetimibe (Zetia) 10 Mg Tablet PO 02/10/24 14:59 10 mg
DAILY MAAME Administration
Sodium Chloride 1,000 mls @ 0 mls/hr 01/13/24 15:00
Nss IV
.Q0M MAAME
Per Protocol
Lisinopril 40 mg 01/13/24 15:00 01/13/24 16:57
Lisinopril 20 Mg Tablet PO 02/10/24 14:59 40 mg
DAILY MAAME Administration
Pantoprazole Sodium 40 mg 01/13/24 20:00 01/14/24 10:38
Pantoprazole Sodium 40 Mg/10 Ml Vial IV 02/10/24 19:59 40 mg
BID MAAME Administration
Rosuvastatin Calcium 5 mg 01/13/24 15:00 01/14/24 10:39
Rosuvastatin (Crestor) 5 Mg Tablet PO 02/10/24 14:59 5 mg
DAILY MAAME Administration
Sodium Chloride 0 flush 01/13/24 15:00
Sodium Chloride 0.9% (Flush) Syringe IV 02/10/24 14:59
PER PROTOCOL MAAME
Sodium Chloride 10 ml 01/13/24 20:00 01/14/24 10:38
Sodium Chloride 0.9% (Preservative Free) 10 Ml Vial IV 02/10/24 19:59 10 ml
BID MAAME Administration
Sucralfate 1 gram 01/13/24 20:00 01/14/24 10:38
Sucralfate 1 Gram Tablet PO 02/10/24 19:59 1 gram
BID MAAME Administration
Review of Systems
-
All Other Systems: Reviewed and Negative
Physical Exam
-
Physical examination shows the patient to be in no acute distress.
HEENT exam is unremarkable.
There are no palpable nodes with the exception of a couple of 1 cm left axillary nodes which do not feel pathologic.
Chest is clear.
The heart is regular with no murmur or gallop.
The abdomen is soft and nontender with no organomegaly or masses.
Extremities are unremarkable.
Neurologic is grossly intact.
Labs
Lab Results
WBC 7.8 10^3/uL (4.8-10.8) 01/14/24 05:22
RBC 2.95 10^6/uL (4.70-6.10) L 01/14/24 05:22
Hgb 8.7 g/dL (13.0-18.0) L 01/14/24 10:42
Hct 26.8 % (39.0-52.0) L 01/14/24 10:42
MCV 83.7 fL (80.0-94.0) 01/14/24 05:22
MCH 27.5 pg (27.0-31.0) 01/14/24 05:22
MCHC 32.8 g/dL (33.0-37.0) L 01/14/24 05:22
RDW 14.4 % (11.5-14.5) 01/14/24 05:22
Plt Count 272 10^3/uL (130-400) D 01/14/24 05:22
MPV 8.9 fL (7.4-10.4) 01/14/24 05:22
Abs Immat Gran (auto) 0.1 10^3/uL (0-0.05) H 01/14/24 05:22
Absolute Neuts (auto) 6.3 10^3/uL (1.4-6.5) 01/14/24 05:22
Absolute Lymphs (auto) 0.8 10^3/uL (1.2-3.4) L 01/14/24 05:22
Absolute Monos (auto) 0.5 10^3/uL (0.1-0.6) 01/14/24 05:22
Absolute Eos (auto) 0.1 10^3/uL (0-0.7) 01/14/24 05:22
Absolute Basos (auto) 0.1 10^3/uL (0-0.2) 01/14/24 05:22
Immature Gran % 0.8 % (0-0.5) H 01/14/24 05:22
Neutrophils % 80.5 % (42.2-75.2) H 01/14/24 05:22
Lymphocytes % 10.5 % (20.5-51.1) L 01/14/24 05:22
Monocytes % 6.8 % (1.7-9.3) 01/14/24 05:22
Eosinophils % 0.8 % (0-6) 01/14/24 05:22
Basophils % 0.6 % (0-2) 01/14/24 05:22
Creatinine 0.8 mg/dL (0.7-1.3) 01/14/24 05:22
Vital Signs
Vital Signs
Temp Pulse Resp BP Pulse Ox
97.6 F 78 16 107/64 97
01/14/24 09:50 01/14/24 12:06 01/14/24 12:06 01/14/24 12:06 01/14/24 12:06
[2024-01-14 13:04] LABS: Reticulocyte Count 4.3 % (0.4-2.8)
[2024-01-14 13:26] LABS: LDH 936 U/L (120-246)
[2024-01-14 13:32] LABS: Iron < 20 ug/dl (49-181)
[2024-01-14] MEDS: NORVASC PO (13:40)
[2024-01-14] MEDS: ZESTRIL PO (13:40)
[2024-01-14] MEDS: NSS 1000 IV (14:18)
[2024-01-14 16:33] LABS: Vitamin B12 342 pg/ml (239-931)
[2024-01-14 16:53] LABS: Hematocrit 25.4 % (39.0-52.0); Hemoglobin 8.2 g/dL (13.0-18.0)
[2024-01-14] MEDS: DUONEB 3 ML INH (19:45)
[2024-01-14 22:16] LABS: Hematocrit 22.5 % (39.0-52.0); Hemoglobin 7.9 g/dL (13.0-18.0)
[2024-01-15] VITALS (9 sets, daily range): BP systolic 92–154; BP diastolic 62–90; BMI 29.6; BMI 29.1
[2024-01-15 05:27] LABS: % Basophils 0.2 % (0-2); % Eosinophils 0.1 % (0-6); % Immature Granulocytes 0.9 % (0-0.5); % Lymphocytes 6.8 % (20.5-51.1); % Monocytes 7.4 % (1.7-9.3); % Neutrophils 84.6 % (42.2-75.2); Absolute Immature Granulocytes 0.1 10^3/uL (0-0.05); Absolute Lymphocytes 0.7 10^3/uL (1.2-3.4); Absolute Monocytes 0.7 10^3/uL (0.1-0.6); Hematocrit 23.3 % (39.0-52.0); Hemoglobin 7.8 g/dL (13.0-18.0); Mean Corp Hgb Conc. 33.5 g/dL (33.0-37.0); Mean Corpuscular Hgb 27.8 pg (27.0-31.0); Mean Corpuscular Volume 82.9 fL (80.0-94.0); Nucleated Red Blood Cells % 0 % (-); Platelet Count 282 10^3/uL (130-400); Red Blood Cell Count 2.81 10^6/uL (4.70-6.10); Red Cell Dist. Width 14.8 % (11.5-14.5); White Blood Cell Count 9.5 10^3/uL (4.8-10.8)
[2024-01-15 05:56] LABS: ALT (SGPT) 75 U/L (0-50); AST (SGOT) 92 U/L (17-59); Albumin 3.4 g/dl (3.5-5.0); Alkaline Phosphatase 426 U/L (38-126); Blood Urea Nitrogen 16 mg/dl (9-20); Calcium 8.7 mg/dl (8.4-10.2); Carbon Dioxide 23 mmol/L (22-30); Chloride 102 mmol/L (98-107); Estimated Creatinine Clearance 84 ml/min; Glucose 113 mg/dl (70-99); Potassium 4.2 mmol/L (3.5-5.1); Sodium 133 mmol/L (135-145); Total Bilirubin 2.1 mg/dl (0.2-1.3); Total Protein 6.2 g/dl (6.3-8.2); eGFR > 60.00
[2024-01-15] MEDS: DUONEB 3 ML INH ×2 (07:52→19:33)
[2024-01-15] MEDS: ZETIA 10 MG PO (08:14)
[2024-01-15] MEDS: CRESTOR 5 MG PO (08:14)
[2024-01-15] MEDS: PROTONIX IV 40 MG IV ×2 (08:15→21:18)
[2024-01-15] MEDS: CARAFATE 1 GRAM PO ×2 (08:15→21:58)
[2024-01-15] MEDS: NSS (PRESERVATIVE FREE) 10 ML IV ×2 (08:15→21:18)
[2024-01-15] MEDS: PULMICORT INH (13:28)
--- NOTE | 2024-01-15 14:38 | W.PN.HOSP.TC ---
Addendum entered and electronically signed by Toribio Quispe MD 01/15/24 18:24:
Attending Addendum-
I saw and evaluated the patient. I reviewed the resident�s note and agree with findings and plan as documented in the resident�s note. Patient continues to have hemoptysis. pobbily @ 07/17 cup. Feels SOB just sitting up. Full 12 point ROS reviewed and
negative except as documented Exam- vitals reviewed in EMR GEN-NAD heart RRR lungs b/l scattered wheeze abd soft LE trace edema
# Hemoptysis-
- likely from met lung disease
- chest/abd/pelvis 01/12- Innumerable widespread bilateral pulmonary nodules and innumerable widespread hepatic low-attenuation lesions suspicious for malignancy, findings could overall represent metastatic disease. Primary lung malignancy cannot be
differentiated.
- c/s onc- input appreciated
- IRAD c/s for liver bx (easiest target)
- appreciate pulm input
# Acute on chronic anemia
- possibly malignancy related
- s/p transfuse 2 units prbc 01/11
- GI c/s appreciated, h/o esoph ulcer and esophagitis (EGD 12/18)
- EGD 01/13- - [place]-colored mucosa with focal area of nodularity
in the distal esophagus as described above. Biopsied.
- Small hiatal hernia.
- Normal examined duodenum.
- protonix bid
- follow CBC daily
# Hyponatremia-
- hypovolemia
- resolving
- DC'd HCTZ
- cont IVF
- repeat BMP in am
#Probable COPD
- start duonebs and budesonide
- appreciate pulm input
- for formal PFTs as OP
# Acute Transaminitis-
- mildly increased
- possibly from malignancy
- acute viral hepatitis panel - P
# HTN-
- cont meds amlodipine and lisinopril
# HLD-
- cont crestor/zetia
# H/O CVA-
- hold asa
DVT p- scds
Time spent coordinating care, review of plan of care with resident, personally reviewed previous records in EMR, med rec, labs, radiology, d/w nursing, and consultants �- 53 mins
Original Note:
Today's Communication/Plan
-
Acute worsening of shortness of breath requiring 2 L of oxygen in morning.
Assessment / Plan
Assessment / Plan
Assessment: 63-year-old male with past medical history of GI bleed, esophageal ulcer, Mcgarry's esophagus, recently admitted here 12/17 to 12/19 for upper GI bleed, who presented to the ED on 01/13/2024 with SOB, fatigue and intermittent hemoptysis.
Impression:
Hemoptysis
Acute blood loss anemia
Hyponatremia
Acute transaminitis
Essential hypertension
Hyperlipidemia
Hx of CVA
Assessment and plan:
Hemoptysis
- Likely due to metastatic lung disease
- Prior black stool likely due to swallowed blood vs acute GI bleed.
- CXR 01/13/2024 with Innumerable widespread bilateral pulmonary nodules suspicious for malignancy, findings could overall represent metastatic disease.
-Primary malignancy cannot be differentiated on imaging alone.
- CT chest/abdomen/pelvis 01/13/2024 with Innumerable widespread bilateral pulmonary nodules and innumerable widespread hepatic low-attenuation lesions suspicious for malignancy, as well as bilateral hilar and mediastinal lymphadenopathy. Very likely
represents metastatic disease.
-Medical oncology evaluated the patient and recommended a liver biopsy of one of the lesions.
-IR consulted for liver biopsy.
-Will continue holding antiplatelets/anticoagulants until hemoglobin is stable and hemoptysis has resolved.
-Continue monitoring daily CBC
Shortness of breath
-Patient endorses shortness of breath this morning and required supplemental oxygen. Was given 2 L.
-Patient has a [id number] smoking history, as well likely underlying COPD. But no PFTs on file and does not take inhalers at home.
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
-Patient has innumerable and widespread bilateral pulmonary nodules likely representing metastatic disease.
-Increased DouNebs to twice daily plus as needed for wheeze, and added Pulmicort 0.5 mg BID.
-Pulmonology consulted
-Appreciate recommendations regarding worsening of hemoptysis. And maintenance of SpO2 between 90 and 94 with supplemental O2 as needed.
Acute Blood Loss anemia
- Presentation with Hb 6.9, s/p 2U PRBC, improved to 8.7. 1 day later hemoglobin is 7.8.
- Possibly due to chronic hemoptysis from occult pulmonary hemorrhage vs chronic GI bleeding
- EGD on 01/14/2024 with a focal area of nodularity at prior esophageal ulcer site
-GI recommended continuing PPI twice daily and advancing diet. GI then signed off. Recommendations appreciated.
- Continue PPI twice daily
-Follow daily CBC
- Transfuse when Hb <7
Hyponatremia
-Hyponatremia improving 133 today.
- Likely contraction hyponatremia, could also represent paraneoplastic syndrome.
- Hold HCTZ
-Continue trending
Acute Transaminitis
-Stable, likely due to liver pathology
- Monitor CMP
HTN-
- Labile blood pressure
- Continue home antihypertensives with holding parameters
HLD-
- cont crestor
H/O CVA-
- cont asa
DVT p- scds
CODE STATUS: Full code
Anticipated Discharge: 24 - 48 hours
Subjective/Interval History
-
Date of Service: January 15, 2024
No acute events overnight
Objective Data
-
Labs:
Laboratory Results
01/15/24
05:03
WBC 9.5
Hgb 7.8 L
Hct 23.3 L
Plt Count 282
Sodium 133 L
Potassium 4.2
Chloride 102
Carbon Dioxide 23
BUN 16
Creatinine 0.8
Glucose 113 H
Calcium 8.7
Total Bilirubin 2.1 H
AST 92 H
ALT 75 H
Alkaline Phosphatase 426 H
Vital Signs:
Vital Signs
Temp Pulse Resp BP Pulse Ox
98 F 65 18 154/81 96
01/15/24 11:31 01/15/24 11:31 01/15/24 11:31 01/15/24 11:31 01/15/24 11:31
I&O
01/14/24 01/15/24 01/16/24
06:59 06:59 06:59
Intake Total 920 / 920 1260 / 1260
Balance 920 / 920 1260 / 1260
Review of Systems
-
History Source: Patient
Constitutional: Reports Weight Loss; Denies Night Sweats or Chills
EENT: Reports No Symptoms Reported
Respiratory: Reports Cough, Hemoptysis and Trouble Breathing
Cardiac: Reports No Symptoms; Denies Chest Pain
Abdomen/GI: Reports No Symptoms; Denies Abdominal Pain, Nausea, Vomiting or Diarrhea
Genitourinary: Reports No Symptoms
Neuro: Reports No Symptoms
Physical Exam
-
General: Well Developed and Well Nourished
Respiratory: Clear to Auscultation and Other (Labored respirations)
Cardiac: Regular Rhythm and S1/S2; Negative Murmur
GI: Soft, Nontender, Nondistended and Normal Bowel Sounds
Musculoskeletal: No Edema
Skin: Warm
Neuro: Awake, Alert, Oriented and AO x 3
Psych: Calm
Data Reviewed
-
Labs: Labs Reviewed by me and Discussed with Physician
--- NOTE | 2024-01-15 14:48 | W.PN.PUL3 ---
Today's Communication / Plan
-
Await liver biopsy
Quantify hemoptysis
Mechanical DVT prophylaxis
Assessment
-
Assessment: 63-year-old male former tobacco smoker with a past medical history of UGIB (2002), hypertension, hypercholesterolemia, CVA (2000), cervical disc disease, GERD with esophagitis and hiatal hernia presents with hemoptysis + shortness of
breath. Patient recently hospitalized here from 12/17 - 12/20/2023 due to upper GI bleed after presenting with melena. He was taking ibuprofen for toothache then and was seen by GI who performed EGD on 12/19/2023 showing LA grade a esophagitis with an
esophageal ulcer without any active bleeding, with long segment Mcgarry's esophagus, 5 cm hiatal hernia and no explanation for his melena in the stomach up to the second portion of the duodenum. He now presents with acute anemia with Hb 6.9, and
transaminitis. CXR shows innumerable bilateral lung nodules, and CT chest, abdomen, pelvis confirmed innumerable widespread bilateral lung nodules with bilateral hilar/mediastinal lymphadenopathy and innumerable low-attenuation lesions seen in the
liver with the largest conglomerate lobulated area in the left lobe measuring >7 cm. There was question about him having hematemesis on 01/13/2024, he was given IVF with NS 0.9% X1 liter, in addition to PPI drip. GI was consulted, and he had a repeat
EGD on 01/14/2024 showing a salmon-colored mucosa with focal area of nodularity in the distal esophagus within normal examined duodenum with a small hiatal hernia. Due to his chest imaging findings, pulmonary service now consulted for additional
management/recommendations.
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
Impression:
#Hemoptysis likely due to metastatic pulmonary disease
#Abnormal CT chest with innumerable pulmonary nodules and mediastinal/hilar lymphadenopathy concerning for metastatic disease
#Innumerable low-attenuation lesions in the liver concerning for metastatic disease
#Suspected COPD based on initial evaluation
#Hx of UGIB with possible hematemesis on admission s/p repeat EGD on 01/14/2024
#Hiatal hernia
#GERD with esophagitis and suspected Mcgarry's esophagus
#Hyponatremia � likely paraneoplastic
#Transaminitis with hyperbilirubinemia likely due to metastatic liver disease; ALp also elevated (?mets to bone)
#Left renal calculi
#Bilateral subcentimeter low-attenuation renal lesions too small to characterize - renal malignancy cannot be excluded
Plan/recommendations
At this time, no significant change overall
Patient continues to have intermittent mopped assist
Would quantify
Patient has innumerable lesions in both his lung and liver as well as bilateral hilar/mediastinal lymphadenopathy
Easiest target would be liver biopsy
IR has been consulted by oncology
If hemoptysis worsens then we will start nebulized tranexamic acid 500mg TID
Due to his significant tobacco smoking history with [id number], I suspect he has underlying COPD, although he does not carry a formal diagnosis of this with no PFTs on file and he does not take inhalers at home
Continue DuoNebs BID for now with prn doses for in between; he should be DC'd home on Spiriva handihaler and should see us in office for full PFTs and COPD management
GI workup negative
Hold antiplatelets/anticoagulants for now until Hb is stable and hemoptysis resolved
Incentive spirometer encouraged
DVT ppx: mechanical
Disposition efforts
Data:
CT Chest/Abd/pelvis with IV Contrast 01-13-2024:
Innumerable widespread bilateral pulmonary nodules and innumerable widespread hepatic low-attenuation lesions suspicious for malignancy, findings could overall represent metastatic disease. Primary lung malignancy cannot be differentiated.
Bilateral hilar and mediastinal lymphadenopathy.
No significant retroperitoneal lymphadenopathy. Indeterminate 1.4 cm right lower quadrant mesenteric lymph node.
Likely small hiatal hernia.
Small bilateral renal simple cysts as well as additional bilateral subcentimeter low-attenuation renal lesions too small to characterize. Renal malignancy cannot be excluded. 1Small left renal calculi.
Indeterminate 1.3 cm right adrenal lesion.
Likely coronary artery calcifications.
No intestinal obstruction or free air. Distal colon markedly limited without oral contrast with sigmoid diverticulosis noted. Unfortunately, nonobstructing distal colonic mass cannot be entirely excluded.
Subjective Data
-
Date of Service:
Date of Service: January 15, 2024
Subjective:
Patient seen and examined earlier in the morning. Continues to have occasional hemoptysis. Denies obvious chest pain, nausea, abdominal pain. Lying flat, conversant and in no apparent distress. Currently receiving nebulizer treatment
Objective Data
Data Reviewed
Vital Signs / I&O / Oxygen:
Vital Signs
Temp Pulse Resp BP Pulse Ox
98 F 65 18 154/81 96
01/15/24 11:31 01/15/24 11:31 01/15/24 11:31 01/15/24 11:31 01/15/24 11:31
Intake and Output
01/14/24 01/15/24 01/16/24
06:59 06:59 06:59
Intake Total 920 / 920 1260 / 1260
Balance 920 / 920 1260 / 1260
SaO2 96
Nasal Cannula flow liters per 2
minute
Physical Exam
General: Comfortable
HEENT: Normocephalic, Anicteric and Other (Large neck)
Cardiovascular: S1-S2, Regular Rhythm, Murmur (n) and Rub (n)
Respiratory: Wheeze (n), Crackles (n), Rhonchi (few) and Non-Labored Respirations
GI: Soft, Non Distended (Obese) and Non Tender
Neurology: Awake, Alert and No Motor Deficits
Skin: Cyanosis (n), Jaundice (n) and Rash (n)
Labs/Micro/Reports
Lab Data
01/15/24 10:30
01/15/24 05:03
[2024-01-15] MEDS: LOPRESSOR 5 MG IV (18:48)
[2024-01-15 19:17] LABS: Hepatitis B Surface Antigen Negative (Negative)
[2024-01-15] MEDS: PULMICORT 0.5 MG INH (19:33)
[2024-01-15] MEDS: DUONEB INH (19:33)
[2024-01-15 19:36] LABS: Hepatitis B Core Ab, Total Negative (Negative); Hepatitis B Surface Antibody Negative; Hepatitis C Antibody Negative (Negative)
[2024-01-15 19:37] LABS: Hepatitis A Antibody, Total Negative (Negative)
--- NOTE | 2024-01-15 19:53 | W.PN.UPDATE ---
Update Note
Progress Note Update
Patient acutely desaturated to O2 sats below 85% with heart rate between 130 and 150. The unit nurse increased O2 supplementation from 2 L NC to 6 L NC with minimal improvement in O2 sats to the upper 80s, however patient continues to have
tachycardia and in the 130s. ECG was obtained which reported sinus tachycardia with PVCs occasional complexes with inferior infarct. 5 mg IV metoprolol was given once with improvement of heart rate below 100. Breathing treatment with DuoNebs was
initiated by respiratory with significant improvement in patient's oxygen saturation. Patient was upgraded to nonrebreather mask and has been transferred to IMU.
Acute hypoxic respiratory failure
-Most likely due to worsening pulmonary hemorrhage vs fluid overload.
-EKG with sinus tachycardia with PVC/inferior infarct
-O2 supplementation with nonrebreather mask
-DuoNebs as needed
-IV Lasix now
-IV metoprolol
-Check troponin and trend
-Upgrade to IMU
-Continue to monitor closely.
Acute on chronic anemia
-Possibly due to occult malignancy with hemoptysis
-S/p 2U PRBC 01/11
-Hb trending down 8.7�7.8
-H&H every 6 hours
-Transfuse as needed
[2024-01-15 19:59] LABS: Hematocrit 21.3 % (39.0-52.0); Hemoglobin 7.5 g/dL (13.0-18.0)
[2024-01-15] MEDS: LASIX 40 MG IV (20:28)
[2024-01-15 20:53] LABS: Troponin I 0.017 ng/ml
--- NOTE | 2024-01-15 21:46 | PTCARENOTE ---
Addendum entered by Lino Barrientos RN 01/16/24 06:25:
Patient voiding 50-100mL at a time in urinal. Bladder scan showed >800mL. Straight cathed using sterile technique for 800mL orange urine; UA sent. Pt tolerated well.
Original Note:
Received pt from 3W. Sp02 83% on 6L, respirations 30-40s. HR 100-120s. Hemoptysis continues. RT and GLASS BLOCK INSTALLER Eloy made aware. GLASS BLOCK INSTALLER at bedside to assess pt. RT placed on midflow, Sp02 86%. NRB placed, Sp02 98-99%. Respirations continue to be in the 30s.
Voided 50mL after Lasix administration. HR 140s when sitting at edge of bed. Educated pt on fall precautions and the need to stay in bed at this time for safety. Call araujo and tray table within reach.
[2024-01-15] MEDS: MORPHINE SULFATE 0.5 MG IV (22:03)
[2024-01-15] MEDS: MELATONIN 5 MG PO (22:03)
[2024-01-15 22:49] LABS: Blood Urea Nitrogen 19 mg/dl (9-20); Calcium 8.7 mg/dl (8.4-10.2); Carbon Dioxide 20 mmol/L (22-30); Chloride 103 mmol/L (98-107); Estimated Creatinine Clearance 75 ml/min; Glucose 132 mg/dl (70-99); Magnesium 1.8 mg/dl (1.6-2.3); Potassium 4.1 mmol/L (3.5-5.1); Sodium 135 mmol/L (135-145); eGFR > 60.00
[2024-01-16] VITALS (12 sets, daily range): BP systolic 77–113; BP diastolic 58–93
[2024-01-16 02:07] LABS: Hematocrit 21.5 % (39.0-52.0); Hemoglobin 7.5 g/dL (13.0-18.0)
[2024-01-16 02:08] LABS: Urine Albumin Negative (Neg - Trace); Urine Bilirubin Negative (Negative); Urine Character Clear (Clear); Urine Color Yellow; Urine Glucose Negative (Negative); Urine Ketone Negative (Negative); Urine Leukocyte Trace (Negative); Urine Nitrite Negative (Negative); Urine Occult Blood Negative (Negative); Urine Urobilinogen 2+ (Neg - 1+)
[2024-01-16 02:19] LABS: Urine Bacteria Few (Negative); Urine Red Blood Cell 0-2 /HPF (0-2)
[2024-01-16 05:37] LABS: % Basophils 0.2 % (0-2); % Lymphocytes 6.7 % (20.5-51.1); % Monocytes 5.6 % (1.7-9.3); % Neutrophils 86.5 % (42.2-75.2); Absolute Immature Granulocytes 0.1 10^3/uL (0-0.05); Absolute Lymphocytes 0.8 10^3/uL (1.2-3.4); Absolute Monocytes 0.7 10^3/uL (0.1-0.6); Absolute Neutrophils 10.7 10^3/uL (1.4-6.5); Hematocrit 22.6 % (39.0-52.0); Hemoglobin 7.6 g/dL (13.0-18.0); Mean Corp Hgb Conc. 33.6 g/dL (33.0-37.0); Mean Corpuscular Hgb 27.4 pg (27.0-31.0); Mean Corpuscular Volume 81.6 fL (80.0-94.0); Mean Platelet Volume 9.1 fL (7.4-10.4); Nucleated Red Blood Cells % 0 % (-); Platelet Count 265 10^3/uL (130-400); Red Blood Cell Count 2.77 10^6/uL (4.70-6.10); Red Cell Dist. Width 15.1 % (11.5-14.5); White Blood Cell Count 12.4 10^3/uL (4.8-10.8)
[2024-01-16 06:01] LABS: Troponin I 0.013 ng/ml
[2024-01-16 06:18] LABS: ALT (SGPT) 70 U/L (0-50); AST (SGOT) 93 U/L (17-59); Albumin 3.5 g/dl (3.5-5.0); Alkaline Phosphatase 360 U/L (38-126); Blood Urea Nitrogen 23 mg/dl (9-20); Calcium 8.8 mg/dl (8.4-10.2); Carbon Dioxide 22 mmol/L (22-30); Chloride 101 mmol/L (98-107); Estimated Creatinine Clearance 67 ml/min; Glucose 127 mg/dl (70-99); Potassium 4.2 mmol/L (3.5-5.1); Sodium 135 mmol/L (135-145); Total Bilirubin 2.4 mg/dl (0.2-1.3); Total Protein 6.2 g/dl (6.3-8.2); eGFR > 60.00
[2024-01-16] MEDS: PULMICORT 0.5 MG INH ×2 (07:21→20:21)
[2024-01-16] MEDS: DUONEB 3 ML INH (07:21)
[2024-01-16] MEDS: LASIX 80 MG IV (07:46)
--- NOTE | 2024-01-16 08:43 | PN.CDI ---
CDI
- -
CDI:
Physician Documentation Request
Admit Date: 01/13/24 12:23
Dear Doctor Trina,
Please review the following and provide your response in the progress notes.
Clinical Indicators:
Pt admitted with anemia and hemoptysis
01/12 Registered Dietition note: 'Pt reports he only has 4 teeth and has trouble with those, so unable to eat much...
BW: 178 lbs 11.2 oz BMI 28.8 01/12. Pts weight previous admission listed as 190 lbs reflective 12/17 of 12 lb (6%) weight loss in 1 month.
With weight loss of > 5% in 1 month and < 75% estmated needs > 1 month pt meets AND/ASPEN criteria for moderate protein calorie malnutrition.
Request progression of diet as tolerated.
01/13 Pulm: ''He had about 25 pound weight loss over the last 1.5 months..'
Based on the above information and your assessment, which of the following most accurately represents the patient's nutritional status?
Moderate Malnutrition
No nutritional deficiency
Other (please specify)
[facility] Criteria ([facility] 2017)
2 or more criteria must be present for either
non severe or severe malnutrition
Note that the criteria differs related to the
presence of an acute or chronic illness
Acute Illness Chronic Illness
Energy Intake Non Severe: <75% for >7 days Non Severe: <75% for >1 month
Severe: <50% for >5 days Severe: <75% for >1 month
Weight Loss Non Severe: 1-2% over 1 week Non Severe: 5% over 1 month
5% over 1 month 7.5% over 3 months
7.5% over 3 months 10% over 6 months
1 year N/A 20% over 1 year
Severe: >2% over 1 week Severe: >5% over 1 month
>5% over 1 month >7.5% over 3 months
>7.5% over 3 months >10% over 6 months
1 year N/A >20% over 1 year
Additional criteria that can be used to Determine if Mild or Moderate Malnutrition ([employer] Manual 2018)
Use of terms such as suspected, likely, concern for, or probable (associated with a specific diagnosis that is being evaluated, monitored, or treated as if it exists) are acceptable and can be coded in the inpatient setting, when documented at the
time of discharge.
Thank you,
Ambreen Chambers RN, BSN
CDI Specialist
Available via [employer]
Please use your independent medical judgment in providing your response.
[2024-01-16] MEDS: CARAFATE 1 GRAM PO ×2 (08:59→20:50)
[2024-01-16] MEDS: ZETIA 10 MG PO (08:59)
[2024-01-16] MEDS: ZESTRIL 40 MG PO (08:59)
[2024-01-16] MEDS: CRESTOR 5 MG PO (08:59)
[2024-01-16] MEDS: PROTONIX IV 40 MG IV ×2 (09:00→20:50)
[2024-01-16] MEDS: NSS (PRESERVATIVE FREE) 10 ML IV ×2 (09:00→20:51)
--- NOTE | 2024-01-16 09:36 | PTCARENOTE ---
Received pt at shift change on 15L O2 NRB mask, covering resident present on the floor, order obtained for high flow. RT at bedside, pt placed on 15L 70% O2 vis high flow cannula, pt saturating 96-98%. Pt ordered 80mg IV Lasix STAT, given as
ordered, see SEP. Pt with a hx of urinary retention overnight last PM, condom catheter placed with positive urine output. Pt remains tachypneic with a RR in the 30's, but reports improvement in sx. Pt remains with significant SUÁREZ, advised pt not to
attempt to get out of bed without assistance to which pt expressed understanding. Pt ordered breakfast, resting comfortably in bed, call araujo within reach, bed alarm in place.
--- NOTE | 2024-01-16 10:00 | W.PN.HOSP.TC ---
Addendum entered and electronically signed by Toribio Quispe MD 01/16/24 21:11:
Attending Addendum-
I saw and evaluated the patient. I reviewed the resident�s note and agree with findings and plan as documented in the resident�s note. overnight had acute decompensation with hypoxia and rapid a fib/hjypotension. placed on NRB and started on rate
controlling meds and diuresed/transferred to ICU. Seen with son present this am. Patient states he doesnt want aggressive measures to be done. Son present with questions and 'cant we just get a bx just so we know?' Feels SOB just sitting. Full 12
point ROS reviewed and negative except as documented Exam- vitals reviewed in EMR GEN-mod resp distress. heart RRR lungs b/l crackles abd soft LE trace edema
# Hemoptysis-
- likely from met lung disease- poor prog
- chest/abd/pelvis 01/12- Innumerable widespread bilateral pulmonary nodules and innumerable widespread hepatic low-attenuation lesions suspicious for malignancy, findings could overall represent metastatic disease. Primary lung malignancy cannot be
differentiated.
- cancel bx
- transition to comfort care based measures
- c/s hospice
- transfer to med surg
# Acute on chronic anemia
- possibly malignancy related
- s/p transfuse 2 units prbc 01/11
- GI c/s appreciated, h/o esoph ulcer and esophagitis (EGD 12/18)
- EGD 01/13- - [place]-colored mucosa with focal area of nodularity
in the distal esophagus as described above. Biopsied.
- Small hiatal hernia.
- Normal examined duodenum.
- cancel further cbc
# Hyponatremia-
- hypovolemia
- resolving
#Probable COPD
- start duonebs and budesonide
- appreciate pulm input
- for formal PFTs as OP
# Acute Transaminitis-
- stable
- avoid further checks
# HTN-
- cont meds amlodipine and lisinopril
# HLD-
- cont crestor/zetia
# H/O CVA-
- hold asa
DVT p- scds
CODE- Full-->DNR/DNI son present
Dipos- transition to hospice care
Time spent coordinating care, review of plan of care with resident, personally reviewed previous records in EMR, med rec, labs, radiology, d/w nursing, hospice son consultants �- 60 mins
Original Note:
Today's Communication/Plan
-
CODE STATUS change, DNR/DNI, hospice initiation
Assessment / Plan
Assessment / Plan
Assessment: 63-year-old male with past medical history of GI bleed, esophageal ulcer, Mcgarry's esophagus, recently admitted here 12/17 to 12/19 for upper GI bleed, who presented to the ED on 01/13/2024 with SOB, fatigue and intermittent hemoptysis.
Impression:
Hemoptysis
Acute blood loss anemia
Hyponatremia
Acute transaminitis
Essential hypertension
Hyperlipidemia
Hx of CVA
Assessment and plan:
Hemoptysis/metastatic disease
- Likely due to metastatic lung disease
- Prior black stool likely due to swallowed blood vs acute GI bleed.
- CXR 01/13/2024 with Innumerable widespread bilateral pulmonary nodules suspicious for malignancy, findings could overall represent metastatic disease.
-Primary malignancy cannot be differentiated on imaging alone.
- CT chest/abdomen/pelvis 01/13/2024 with Innumerable widespread bilateral pulmonary nodules and innumerable widespread hepatic low-attenuation lesions suspicious for malignancy, as well as bilateral hilar and mediastinal lymphadenopathy. Very likely
represents metastatic disease.
-Medical oncology evaluated the patient and recommended a liver biopsy of one of the lesions.
-IR consulted for liver biopsy.
-Will continue holding antiplatelets/anticoagulants until hemoglobin is stable and hemoptysis has resolved.
-Continue monitoring daily CBC
-Conversation was had today with patient and son present regarding patient's CODE STATUS. It was decided the patient's wishes were to be DNR/DNI.
-Hospice was consulted
-Morphine drip was initiated, Step 2.
Acute respiratory failure
-Patient had an episode of tachycardia and desaturation last night. Was eventually placed on a nonrebreather and transferred to IMU.
-Overnight patient received morphine, 40 mg of IV Lasix, as well as metoprolol to help control his symptoms and breathing.
-This morning he was placed on 50 L 70% FiO2 high flow nasal cannula and IMU. Will continue to monitor vital signs closely.
-Patient has a [id number] smoking history, as well likely underlying COPD. But no PFTs on file and does not take inhalers at home.
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
-Patient has innumerable and widespread bilateral pulmonary nodules likely representing metastatic disease.
-DuoNebs twice daily plus as needed for wheeze, and added Pulmicort 0.5 mg BID.
-Pulmonology consulted
Acute Blood Loss anemia
- Presentation with Hb 6.9 on 01/13/2024 s/p 2U PRBC, improved to 8.7 on 01/14/2024. 7.6 on 01/16/2024, stable with last 3 checks.
- Possibly due to chronic hemoptysis from occult pulmonary hemorrhage vs chronic GI bleeding
- EGD on 01/14/2024 with a focal area of nodularity at prior esophageal ulcer site
-GI recommended continuing PPI twice daily and advancing diet. GI then signed off. Recommendations appreciated.
- Continue PPI twice daily
-Continue q6 hour H&H checks
- Transfuse when Hb <7
Urinary retention
-Patient has been receiving doses of IV Lasix to help with his respiratory failure.
-Have been discontinued.
-Overnight he was getting serial bladder scans which showed 800 mL of retention.
-He was straight cathed and later changed over to a condom catheter.
-Continue serial bladder scans and straight cath as needed
Weight loss
-Patient endorses 25 pound weight loss
-Patient has diffuse metastatic disease throughout his lungs and liver. Primary unknown.
-Protein is 6.2 albumin is 3.5 weight loss is due to chronic condition and not malnutrition.
-Patient is eating and drinking well, no issues with diet.
Hyponatremia
-Hyponatremia improving 135 today.
- Likely contraction hyponatremia, could also represent paraneoplastic syndrome.
- Hold HCTZ
-Continue trending
Acute Transaminitis
-Stable, likely due to liver pathology
- Monitor CMP
HTN-
- Labile blood pressure
- Continue home antihypertensives with holding parameters
HLD-
- cont crestor
H/O CVA-
- cont asa
DVT p- scds
CODE STATUS: DNR
Anticipated Discharge: > 48 hours
Subjective/Interval History
-
Date of Service: January 16, 2024
Patient had a rapid response called overnight. He was tachycardic and desatting. Placed on nonrebreather overnight, this morning was placed on high flow 50 L 70% FiO2 oxygen this morning.
Objective Data
-
Labs:
Laboratory Results
01/15/24 01/16/24 01/16/24
22:18 01:44 05:18
WBC 12.4 H
Hgb 7.5 L 7.6 L
Hct 21.5 L 22.6 L
Plt Count 265
Sodium 135 135
Potassium 4.1 4.2
Chloride 103 101
Carbon Dioxide 20 L 22
BUN 19 23 H
Creatinine 0.9 1.0
Glucose 132 H 127 H
Calcium 8.7 8.8
Total Bilirubin 2.4 H
AST 93 H
ALT 70 H
Alkaline Phosphatase 360 H
01/16/24 01/16/24
13:00 19:00
WBC
Hgb Cancelled Cancelled
Hct Cancelled Cancelled
Plt Count
Sodium
Potassium
Chloride
Carbon Dioxide
BUN
Creatinine
Glucose
Calcium
Total Bilirubin
AST
ALT
Alkaline Phosphatase
Vital Signs:
Vital Signs
Temp Pulse Resp BP Pulse Ox
98.2 F 113 41 110/80 92
01/16/24 08:05 01/16/24 09:45 01/16/24 09:45 01/16/24 08:59 01/16/24 09:45
I&O
01/15/24 01/16/24 01/17/24
06:59 06:59 06:59
Intake Total 1260 / 1260 1200 / 1200
Output Total 1000 / 1000
Balance 1260 / 1260 200 / 200
Review of Systems
-
History Source: Patient
Constitutional: Reports Weight Loss
Respiratory: Reports Cough, Hemoptysis, Trouble Breathing and Wheezing
Cardiac: Reports No Symptoms
Abdomen/GI: Reports No Symptoms
Genitourinary: Reports No Symptoms
Skin: Reports No Symptoms
Physical Exam
-
General: Respiratory Distress and Appears Chronically Ill
Respiratory: Wheezes, Decreased Breath Sounds and Other (Short labored breaths)
Cardiac: Regular Rhythm and S1/S2
GI: Soft, Nontender and Nondistended
Musculoskeletal: No Clubbing and No Edema
Skin: Warm and Dry
Neuro: AO x 3 and No Motor Deficits
Psych: Calm
Data Reviewed
-
Labs: Labs Reviewed by me and Discussed with Physician
--- NOTE | 2024-01-16 10:40 | W.PN.PUL3 ---
Today's Communication / Plan
-
Defer liver biopsy for now given respiratory deterioration with worsening acute hypoxic respiratory failure
Quantify hemoptysis -if worsens then we will start nebulized TXA
Mechanical DVT prophylaxis
Change scheduled DuoNebs in the setting of tachycardia to BID Xopenex + Spiriva with prn Xopenex
Guarded prognosis
Assessment
-
Assessment: 63-year-old male former tobacco smoker with a past medical history of UGIB (2002), hypertension, hypercholesterolemia, CVA (2000), cervical disc disease, GERD with esophagitis and hiatal hernia presents with hemoptysis + shortness of
breath. Patient recently hospitalized here from 12/17 - 12/20/2023 due to upper GI bleed after presenting with melena. He was taking ibuprofen for toothache then and was seen by GI who performed EGD on 12/19/2023 showing LA grade a esophagitis with an
esophageal ulcer without any active bleeding, with long segment Mcgarry's esophagus, 5 cm hiatal hernia and no explanation for his melena in the stomach up to the second portion of the duodenum. He now presents with acute anemia with Hb 6.9, and
transaminitis. CXR shows innumerable bilateral lung nodules, and CT chest, abdomen, pelvis confirmed innumerable widespread bilateral lung nodules with bilateral hilar/mediastinal lymphadenopathy and innumerable low-attenuation lesions seen in the
liver with the largest conglomerate lobulated area in the left lobe measuring >7 cm. There was question about him having hematemesis on 01/13/2024, he was given IVF with NS 0.9% X1 liter, in addition to PPI drip. GI was consulted, and he had a repeat
EGD on 01/14/2024 showing a salmon-colored mucosa with focal area of nodularity in the distal esophagus within normal examined duodenum with a small hiatal hernia. Due to his chest imaging findings, pulmonary service now consulted for additional
management/recommendations.
Chronic conditions UNDERCUTTER: Hypertension, hyperlipidemia, history of CVA, history of Mcgarry esophagus, hiatal hernia, GERD with esophagitis (esophagitis seen on EGD from 12/19/2023), cervical arthritis, history of GI bleed, former tobacco use disorder
Impression:
#Hemoptysis likely due to metastatic pulmonary disease
#Abnormal CT chest with innumerable pulmonary nodules and mediastinal/hilar lymphadenopathy concerning for metastatic disease
#Innumerable low-attenuation lesions in the liver concerning for metastatic disease
#Suspected COPD based on initial evaluation
#Hx of UGIB with possible hematemesis on admission s/p repeat EGD on 01/14/2024
#Hiatal hernia
#GERD with esophagitis and suspected Mcgarry's esophagus
#Hyponatremia � likely paraneoplastic
#Transaminitis with hyperbilirubinemia likely due to metastatic liver disease; ALp also elevated (?mets to bone)
#Left renal calculi
#Bilateral subcentimeter low-attenuation renal lesions too small to characterize - renal malignancy cannot be excluded
Plan/recommendations
At this time, he continues to be worsening now requiring high flow nasal cannula currently at 70% FiO2, saturating 95%
He is also tachycardic into the 130s - 150s, which is sinus tachycardia, as response to his hypoxia
He is more hypoxic and hemoptysis continuing and this is all likely due to to his metastatic disease of unknown primary, with innumerable lesions in lung and liver
Code status discussed with the patient this morning and he said he had to think about it.
Would quantify his hemoptysis with disposable cup
Patient has innumerable lesions in both his lung and liver as well as bilateral hilar/mediastinal lymphadenopathy
Easiest target would be liver biopsy --> once his O2 requirements improve then he will get Bx done; defer for now given respiraotry instability
IR has been consulted by oncology
If hemoptysis worsens then we will start nebulized tranexamic acid 500mg TID
Due to his significant tobacco smoking history with [id number], I suspect he has underlying COPD, although he does not carry a formal diagnosis of this with no PFTs on file and he does not take inhalers at home
Continue nebulized bronchodilators BID for now with Spiriva respimat + prn xopenex doses for in between; he should be DC'd home on Spiriva handihaler and should see us in office for full PFTs and COPD management (if he survives this hospitalization)
Avoid albuterol for now given his tachycardia
GI workup negative
Hold antiplatelets/anticoagulants for now until Hb is stable and hemoptysis resolved
PPI as per GI and defer diet to GI as well
Incentive spirometer encouraged
DVT ppx: SCDs
Guarded prognosis
Pulmonary service will continue to follow along.
Total time spent today was 50 minutes for this encounter. Time includes reviewing laboratory test/imaging results, reviewing pertinent medical records, obtaining and reviewing medical history, performing an appropriate exam, ordering medications,
tests and procedures. Time also includes documentation of this encounter, coordinating patient care and communicating with other healthcare professionals. Total time does not include separately billed tests performed on this date of service.
Data:
CXR 01-16-2024: Redemonstration of extensive pulmonary metastatic disease. No effusions or pneumothorax.
CT Chest/Abd/pelvis with IV Contrast 01-13-2024:
Innumerable widespread bilateral pulmonary nodules and innumerable widespread hepatic low-attenuation lesions suspicious for malignancy, findings could overall represent metastatic disease. Primary lung malignancy cannot be differentiated.
Bilateral hilar and mediastinal lymphadenopathy.
No significant retroperitoneal lymphadenopathy. Indeterminate 1.4 cm right lower quadrant mesenteric lymph node.
Likely small hiatal hernia.
Small bilateral renal simple cysts as well as additional bilateral subcentimeter low-attenuation renal lesions too small to characterize. Renal malignancy cannot be excluded. 1Small left renal calculi.
Indeterminate 1.3 cm right adrenal lesion.
Likely coronary artery calcifications.
No intestinal obstruction or free air. Distal colon markedly limited without oral contrast with sigmoid diverticulosis noted. Unfortunately, nonobstructing distal colonic mass cannot be entirely excluded.
Subjective Data
-
Date of Service:
Date of Service: January 16, 2024
Chief Complaint: Pulmonary Follow Up
Subjective:
Moved to IMU overnight due to worsening hypoxia with tachycardia. This morning when I saw the patient he was on high flow nasal cannula with FiO2 70%, saturating 95%. He says he feels 'okay.' He remains tachycardic to 128, BP 96/74 and he is
breathing in the 25-30 range. Still coughing up bloody phlegm (the bottom of the disposable cup was filled with chunky bloody phlegm). He otherwise denies chest pain, headache, back pain, fevers or chills.
Review of Systems
General: Other (Negative unless mentioned above)
Objective Data
Data Reviewed
Vital Signs / I&O / Oxygen:
Vital Signs
Temp Pulse Resp BP Pulse Ox
98.2 F 113 41 110/80 92
01/16/24 08:05 01/16/24 09:45 01/16/24 09:45 01/16/24 08:59 01/16/24 09:45
Intake and Output
01/15/24 01/16/24 01/17/24
06:59 06:59 06:59
Intake Total 1260 / 1260 1200 / 1200
Output Total 1000 / 1000
Balance 1260 / 1260 200 / 200
SaO2 92
Nasal Cannula flow liters per 50
minute
Physical Exam
General: Respiratory Distress (mild)
HEENT: Normocephalic, Anicteric and Other (Large neck)
Cardiovascular: S1-S2, Murmur (n), Rub (n) and Other (Tachycardic)
Respiratory: Wheeze (n), Crackles (Bilateral), Rhonchi (n) and Accessory Resp Muscle Use (Mild [place] with activity/exertion)
GI: Soft, Non Distended (Obese) and Non Tender
Neurology: Awake, Alert and No Motor Deficits
Skin: Warm, Dry, Cyanosis (n), Jaundice (n) and Rash (n)
Labs/Micro/Reports
Lab Data
01/16/24 19:00
01/16/24 05:18
[2024-01-16] MEDS: MORPHINE SULFATE 2 MG IV (12:29)
--- NOTE | 2024-01-16 12:45 | PTCARENOTE ---
Pt's son at the bedside during medical care team rounding. BP 85/68 currently. Goals of care discussed with medical team and pt elected to change code status to DNR, orders changed to reflect pt wishes. Pt remains tachycardic and tachypneic, POX 96%
on high flow. Pt ordered STAT dose 2mg IV Morphine, given as ordered, see MAR. Goals of care continue to be addressed, per MD, plan of care to be changed to comfort care today.
--- NOTE | 2024-01-16 13:49 | W.PN.ONC ---
Addendum entered and electronically signed by Odilon London MD 01/16/24 13:55:
While somewhat equivocal, I believe he is iron deficient. I have started him on IV iron.
Original Note:
Today's Communication / Plan
-
Due to the deterioration of his breathing status, the biopsy cannot be done today. Hopefully this will improve to the point where it can be done on Friday.
Impression
Impression
Apparent widespread malignancy involving the lungs and liver, no clear primary
Anemia, history of GI bleeding
Plan
Plan
I have consulted interventional radiology for liver biopsy. Further studies ordered regarding his anemia. We will continue to follow.
Subjective/Objective
Subjective/Objective
He became progressively short of breath. He is on an increased flow of oxygen. Things seem stable at this time. Physical examination is otherwise unchanged.
Vital Signs:
Vital Signs
Temp Pulse Resp BP Pulse Ox
98.2 F 117 36 85/68 99
01/16/24 11:53 01/16/24 12:05 01/16/24 12:05 01/16/24 12:05 01/16/24 12:05
Lab Results:
Laboratory Data
WBC 12.4 10^3/uL (4.8-10.8) H 01/16/24 05:18
Hgb Cancelled 01/16/24 19:00
Plt Count 265 10^3/uL (130-400) 01/16/24 05:18
PT 15.9 Sec (11.4-14.6) H 01/14/24 05:22
INR 1.29 01/14/24 05:22
APTT 43.0 Sec (23.4-35.0) H 01/14/24 05:22
eGFR > 60.00 01/16/24 05:18
[2024-01-16 15:05] LABS: HIV Combo Negative (Negative)
--- NOTE | 2024-01-16 15:13 | CM ---
Case Management consult completed. Referral sent to Hospice via [facility] as requested
--- NOTE | 2024-01-16 16:51 | HOSPNOTE ---
Addendum entered by Iman Loving RN 01/16/24 17:19:
Spoke to patients son Varun, I explained his fathers decision for comfort care and the decline of proceeding with the biopsy. Varun understood his fathers decision and understood that patient would be started on morphine and the focus would be
on comfort care. Emotional support provided.
Original Note:
Referral received. I called and spoke to patients son Varun. Varun was tearful and stated that he wanted patient to fight and get the biopsy done. The son understood the patients wishes to be kept comfortable and to pass peacefully. I came and
spoke to the patient directly. I explained the options to the patient and patient verbalized that he wanted to be comfort care and understood that meant he would . He verbalized understanding and stated that he watched his sister pass away 6
months ago from brain cancer and he did not want to go through that. I updated attending and recommended to start a morphine drip at step 2. Primary RN updated. I will then call the son Varun back and let him know of his dad's decision. Emotional
support provided. Hospice will continue to follow for support.
[2024-01-16] MEDS: MORPHINE 100 IV (18:30)
--- NOTE | 2024-01-16 18:39 | PTCARENOTE ---
Pt seen by hospice art therapist, ongoing goals of care discussed. Pt is officially ordered comfort care. Morphine gtt initiated on step 2, per order, see MAR. Pt updated on POC, expresses understanding, no questions at this time. Resting comfortably in bed,
call araujo in hand.
--- NOTE | 2024-01-16 20:05 | PTCARENOTE ---
Pt scored 5 on RDOS assessment, RN offered Pt ordered breakthrough dose of PRN morphine per scoring. Pt denies need for dose, stating he is currently comfortable.
[2024-01-16] MEDS: XOPENEX 1.25 MG INHALANT SOLUTION INH (20:21)
--- NOTE | 2024-01-16 21:49 | PTCARENOTE ---
Pt decreased to midflow 15L by Respiratory therapist. Sats 94%, Pt remains tachypneic at times. Current RR 20. Pt appears calm and comfortable at current time. RN asked Pt how he is feeling pt states 'comfortable as can be for now'. Pt currently on
step 2 of end of life morphine gtt dosing. Currently at 2mg/2ml hr.
[2024-01-17] VITALS (7 sets, daily range): BP systolic 66–80; BP diastolic 41–56
[2024-01-17] MEDS: MORPHINE SULFATE 2 MG IV ×7 (00:30→21:56)
[2024-01-17] MEDS: XOPENEX 1.25 MG INHALANT SOLUTION INH (07:34)
[2024-01-17] MEDS: PULMICORT 0.5 MG INH (07:34)
[2024-01-17] MEDS: SPIRIVA RESPIMAT 2.5 MCG 2 PUFF INH (07:34)
[2024-01-17] MEDS: PROTONIX IV 40 MG IV (08:08)
[2024-01-17] MEDS: NSS (PRESERVATIVE FREE) 10 ML IV (08:08)
[2024-01-17] MEDS: ZESTRIL PO (08:09)
[2024-01-17] MEDS: CRESTOR PO (08:09)
[2024-01-17] MEDS: CARAFATE PO (08:09)
[2024-01-17] MEDS: ZETIA PO (08:10)
--- NOTE | 2024-01-17 08:14 | PTCARENOTE ---
Pt received on comfort care morphine gtt at 2mg/hr. All po meds not given as pt is on comfort care BP 77/51/ hr 97 NSR 90% on 15 l midflow . Pt is sleeping and is comfortable.
--- NOTE | 2024-01-17 09:43 | PTCARENOTE ---
on rounds pt looks to be SOB .Pt staes its not too bad, given Morphine 2mg IV for SOB
--- NOTE | 2024-01-17 09:48 | HOSPNOTE ---
Addendum entered by Iman Loving RN 01/17/24 19:13:
Spoke to the patients son Varun this is evening- he does not feel that the patient would want inpatient hospice as he does not want to be bothered, wants to be left alone and to pass peacefully. I verbalized understanding to the son and stated
that we can stay in the background and follow for support. Varun did state that he lost his brother 4 years ago and did not get offered any support. I will reach out to Varun tomorrow again to offer support to him and will ask our bereavement
team to reach out to Varun on Friday to provide support as he goes through this with his father. Please reach out to hospice if we can offer the patient support as well. Reviewed he is currently on a morphine infusion with ivp PRN available.
Hospice will continue to follow and support the son and patient if wanted.
Original Note:
Patient is currently on comfort care measures with a morphine infusion. Patient is comfortable at this time. I recommend that patient remains on comfort care measures as does appear to be imminent. I also do not believe the son Varun would
sign consents for inpatient hospice as he was not in agreement with the patients decision yesterday for comfort care measures. Resident and primary nurse updated. Hospice will remain available for supportive measures. Please reach out if we can
provide support to the patient and family.
--- NOTE | 2024-01-17 10:58 | W.PN.HOSP.TC ---
Addendum entered and electronically signed by Toribio Quispe MD 01/17/24 21:17:
Attending Addendum-
I saw and evaluated the patient. I reviewed the resident�s note and agree with findings and plan as documented in the resident�s note. Patient complains of sob and being uncomfortbale. When asked if he understands the prognosis and goals of care he
stes yes. 'I just want to be kep comfortable. Thats it.' Full 12 point ROS reviewed and negative except as documented Exam- vitals reviewed in EMR GEN-mod resp distress. heart RRR lungs b/l crackles abd soft LE trace edema
# Metastatic Malignancy
- unknown primary
- start morphine gtt and increase to 3mg/hr
- chest/abd/pelvis 01/12- Innumerable widespread bilateral pulmonary nodules and innumerable widespread hepatic low-attenuation lesions suspicious for malignancy, findings could overall represent metastatic disease. Primary lung malignancy cannot be
differentiated.
- transfer to med surg when patient more comfortable
- start prn ativan, levsin and dc all other non comfort based meds
- cont low flow o2 and duonebs as needed for comfort
- imminent
- actively managing based on comfort level
# Acute on chronic anemia
# Hyponatremia
#Probable COPD
# Acute Transaminitis
# HTN
# HLD
# H/O CVA
DVT- none
CODE-DNR/DNI
Dipos- continue comfort care
Time spent coordinating care, review of plan of care with resident, personally reviewed previous records in EMR, med rec, labs, radiology, d/w nursing, hospice, consultants- 52 mins
Original Note:
Today's Communication/Plan
-
Comfort care, goals of care discussions
Assessment / Plan
Assessment / Plan
Assessment: 63-year-old male with past medical history of GI bleed, esophageal ulcer, Mcgarry's esophagus, recently admitted here 12/17 to 12/19 for upper GI bleed, who presented to the ED on 01/13/2024 with SOB, fatigue and intermittent hemoptysis.
Impression:
Hemoptysis
Acute blood loss anemia
Hyponatremia
Acute transaminitis
Essential hypertension
Hyperlipidemia
Hx of CVA
Assessment and plan:
Hemoptysis/metastatic disease
- Likely due to metastatic lung disease
- Prior black stool likely due to swallowed blood vs acute GI bleed.
- CXR 01/13/2024 with Innumerable widespread bilateral pulmonary nodules suspicious for malignancy, findings could overall represent metastatic disease.
-Primary malignancy cannot be differentiated on imaging alone.
- CT chest/abdomen/pelvis 01/13/2024 with Innumerable widespread bilateral pulmonary nodules and innumerable widespread hepatic low-attenuation lesions suspicious for malignancy, as well as bilateral hilar and mediastinal lymphadenopathy. Very likely
represents metastatic disease.
-Medical oncology following
-IR consulted for liver biopsy. Defer for now given respiratory instability
-Conversation was had today with patient and son present regarding patient's CODE STATUS. It was decided the patient's wishes were to be DNR/DNI.
-Hospice was consulted
-Morphine drip was initiated, Step 2.
Acute respiratory failure
-Patient had an episode of tachycardia and desaturation last night. Was eventually placed on a nonrebreather and transferred to IMU.
-Overnight patient received morphine, 40 mg of IV Lasix, as well as metoprolol to help control his symptoms and breathing.
-This morning he was placed on 50 L 70% FiO2 high flow nasal cannula and IMU. Will continue to monitor vital signs closely.
-Patient has a 10-[id number] smoking history, as well likely underlying COPD. But no PFTs on file and does not take inhalers at home.
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
-Patient has innumerable and widespread bilateral pulmonary nodules likely representing metastatic disease.
-DuoNebs as needed for comfort
-Pulmonology following
Goals of care discussion/hospice care
-Patient made the decision to become DNR/DNI yesterday
-Hospice was consulted and patient was started on comfort care only
-There seems to be a disconnect between the patient's son and his father regarding his father's wishes. The father decided that he wants to proceed with comfort care only. These wishes were confirmed again this morning with the entire team present
-Hospice following for support, very much appreciated.
-Medications that were discontinued because of comfort care include pantoprazole, rosuvastatin, ferric gluconate, ezetimibe, amlodipine, sucralfe, as well as daily labs
-Patient will be kept on breathing treatments for comfort and given morphine
-Morphine was increased to IV [id number] for comfort
-Patient was started on Ativan 2 mg IV every 2 for comfort
-Patient was changed to low-flow nasal cannula
-Zofran milligrams IV every 6 as needed was added for comfort
-Hyoscyamine 0.125 mg p.o. every 4 as needed for comfort was initiated
Acute Blood Loss anemia
- Presentation with Hb 6.9 on 01/13/2024 s/p 2U PRBC, improved to 8.7 on 01/14/2024. 7.6 on 01/16/2024,
- Possibly due to chronic hemoptysis from occult pulmonary hemorrhage vs chronic GI bleeding
- EGD on 01/14/2024 with a focal area of nodularity at prior esophageal ulcer site
-GI recommended continuing PPI twice daily and advancing diet. GI then signed off. Recommendations appreciated.
Weight loss
-Patient endorses 25 pound weight loss
-Patient has diffuse metastatic disease throughout his lungs and liver. Primary unknown.
-Protein is 6.2 albumin is 3.5 weight loss is due to chronic condition and not malnutrition.
-Patient is eating and drinking well, no issues with diet.
Hyponatremia
-Hyponatremia resolved 135
- Likely contraction hyponatremia, could also represent paraneoplastic syndrome.
Acute Transaminitis
-Stable, likely due to liver pathology
HTN-
- Labile blood pressure
-Medications being stopped due to comfort care
HLD-
Medications stopped due to comfort care
H/O CVA-
Medication stopped due to comfort care
DVT p- scds
CODE STATUS: DNR/DNI
Anticipated Discharge: > 48 hours
Subjective/Interval History
-
Date of Service: January 17, 2024
Patient transition to comfort care yesterday hospice was consulted and patient was placed on hospice
Objective Data
-
Vital Signs:
Vital Signs
Temp Pulse Resp BP Pulse Ox
98.2 F 91 11 77/51 84
01/17/24 07:20 01/17/24 09:45 01/17/24 09:45 01/17/24 08:08 01/17/24 09:45
I&O
01/16/24 01/17/24 01/18/24
06:59 06:59 06:59
Intake Total 1200 / 1200 600 / 600
Output Total 1000 / 1000 660 / 660
Balance 200 / 200 -60 / -60
Review of Systems
-
History Source: Patient
Constitutional: Reports Weight Loss, Fatigue and Weakness; Denies Sleep Disturbance or Night Sweats
Respiratory: Reports Hemoptysis and Trouble Breathing; Denies Cough
Cardiac: Reports No Symptoms
Musculoskeletal: Reports No Symptoms
Skin: Reports No Symptoms
Neuro: Reports Other (Blurry vision)
Physical Exam
-
General: Respiratory Distress, Appears in Distress and Appears Chronically Ill
Respiratory: Clear to Auscultation and Other (Labored respirations)
Cardiac: Regular Rhythm and S1/S2
GI: Soft, Nontender and Nondistended
Musculoskeletal: No Edema
Skin: Warm and Dry
Neuro: Awake, Alert, Oriented and AO x 3
Psych: Calm and Intact Judgement/Insight
Data Reviewed
-
Labs: Labs Reviewed by me and Discussed with Physician
--- NOTE | 2024-01-17 11:51 | PTCARENOTE ---
Pt found to be orthopneic and sob using belly muscles to breath , given 2 mg morphine IV
--- NOTE | 2024-01-17 12:57 | W.PN.PUL3 ---
Today's Communication / Plan
-
Continue with oxygen therapy
Continue to quantify hemoptysis
Marginal blood pressure noted
Extremely poor prognosis
Consider transfusion, defer to primary service
DNR status noted
Assessment
-
Assessment: 63-year-old male former tobacco smoker with a past medical history of UGIB (2002), hypertension, hypercholesterolemia, CVA (2000), cervical disc disease, GERD with esophagitis and hiatal hernia presents with hemoptysis + shortness of
breath. Patient recently hospitalized here from 12/17 - 12/20/2023 due to upper GI bleed after presenting with melena. He was taking ibuprofen for toothache then and was seen by GI who performed EGD on 12/19/2023 showing LA grade a esophagitis with an
esophageal ulcer without any active bleeding, with long segment Mcgarry's esophagus, 5 cm hiatal hernia and no explanation for his melena in the stomach up to the second portion of the duodenum. He now presents with acute anemia with Hb 6.9, and
transaminitis. CXR shows innumerable bilateral lung nodules, and CT chest, abdomen, pelvis confirmed innumerable widespread bilateral lung nodules with bilateral hilar/mediastinal lymphadenopathy and innumerable low-attenuation lesions seen in the
liver with the largest conglomerate lobulated area in the left lobe measuring >7 cm. There was question about him having hematemesis on 01/13/2024, he was given IVF with NS 0.9% X1 liter, in addition to PPI drip. GI was consulted, and he had a repeat
EGD on 01/14/2024 showing a salmon-colored mucosa with focal area of nodularity in the distal esophagus within normal examined duodenum with a small hiatal hernia. Due to his chest imaging findings, pulmonary service now consulted for additional
management/recommendations.
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
Impression:
#Hemoptysis likely due to metastatic pulmonary disease
#Abnormal CT chest with innumerable pulmonary nodules and mediastinal/hilar lymphadenopathy concerning for metastatic disease
#Innumerable low-attenuation lesions in the liver concerning for metastatic disease
#Suspected COPD based on initial evaluation
#Hx of UGIB with possible hematemesis on admission s/p repeat EGD on 01/14/2024
#Hiatal hernia
#GERD with esophagitis and suspected Mcgarry's esophagus
#Hyponatremia � likely paraneoplastic
#Transaminitis with hyperbilirubinemia likely due to metastatic liver disease; ALp also elevated (?mets to bone)
#Left renal calculi
#Bilateral subcentimeter low-attenuation renal lesions too small to characterize - renal malignancy cannot be excluded
Plan/recommendations
At this time, he continues to be worsening now requiring high flow nasal cannula currently at 70% FiO2, saturating 95%
Presently on 15 L, 93% mid flow
Tachycardia seems improved
Extensive pulmonary involvement per imaging
Awaiting biopsy
DNR status is noted
Patient has innumerable lesions in both his lung and liver as well as bilateral hilar/mediastinal lymphadenopathy
Easiest target would be liver biopsy --> once his O2 requirements improve then he will get Bx done; defer for now given respiraotry instability
IR has been consulted by oncology
Hemoptysis has stabilized
Due to his significant tobacco smoking history with [id number], I suspect he has underlying COPD, although he does not carry a formal diagnosis of this with no PFTs on file and he does not take inhalers at home
Continue nebulized bronchodilators BID for now with Spiriva respimat + prn xopenex doses for in between; he should be DC'd home on Spiriva handihaler and should see us in office for full PFTs and COPD management (if he survives this hospitalization)
Avoid albuterol for now given his tachycardia
GI workup negative
Hold antiplatelets/anticoagulants for now until Hb is stable and hemoptysis resolved
PPI as per GI and defer diet to GI as well
Incentive spirometer encouraged
DVT ppx: SCDs
Guarded prognosis
Data:
CXR 01-16-2024: Redemonstration of extensive pulmonary metastatic disease. No effusions or pneumothorax.
CT Chest/Abd/pelvis with IV Contrast 01-13-2024:
Innumerable widespread bilateral pulmonary nodules and innumerable widespread hepatic low-attenuation lesions suspicious for malignancy, findings could overall represent metastatic disease. Primary lung malignancy cannot be differentiated.
Bilateral hilar and mediastinal lymphadenopathy.
No significant retroperitoneal lymphadenopathy. Indeterminate 1.4 cm right lower quadrant mesenteric lymph node.
Likely small hiatal hernia.
Small bilateral renal simple cysts as well as additional bilateral subcentimeter low-attenuation renal lesions too small to characterize. Renal malignancy cannot be excluded. 1Small left renal calculi.
Indeterminate 1.3 cm right adrenal lesion.
Likely coronary artery calcifications.
No intestinal obstruction or free air. Distal colon markedly limited without oral contrast with sigmoid diverticulosis noted. Unfortunately, nonobstructing distal colonic mass cannot be entirely excluded.
Subjective Data
-
Date of Service:
Date of Service: January 17, 2024
Chief Complaint: Pulmonary Follow Up
Subjective:
Patient seen earlier this morning. He feels his shortness of breath is slightly improved. Denies any further hemoptysis. Denies chest pain, nausea, abdominal pain. Appears to be in good spirits
Objective Data
Data Reviewed
Vital Signs / I&O / Oxygen:
Vital Signs
Temp Pulse Resp BP Pulse Ox
98.2 F 109 24 77/51 91
01/17/24 07:20 01/17/24 12:30 01/17/24 12:30 01/17/24 08:08 01/17/24 12:30
Intake and Output
01/16/24 01/17/24 01/18/24
06:59 06:59 06:59
Intake Total 1200 / 1200 600 / 600
Output Total 1000 / 1000 660 / 660
Balance 200 / 200 -60 / -60
SaO2 91
Nasal Cannula flow liters per 15
minute
Physical Exam
General: Comfortable (Lying flat)
HEENT: Normocephalic, Anicteric and Other (Large neck)
Cardiovascular: S1-S2, Murmur (n), Rub (n) and Other (Tachycardic)
Respiratory: Wheeze (n), Crackles (Bilateral), Rhonchi (n) and Accessory Resp Muscle Use (Mild austin with activity/exertion)
GI: Soft, Non Distended (Obese) and Non Tender
Neurology: Awake, Alert and No Motor Deficits
Skin: Warm, Dry, Cyanosis (n), Jaundice (n) and Rash (n)
Labs/Micro/Reports
Lab Data
01/16/24 19:00
01/16/24 05:18
[2024-01-17] MEDS: ZOFRAN 8 MG IV (15:26)
--- NOTE | 2024-01-17 15:27 | PTCARENOTE ---
Pt vomitted given Zofran as ordered
--- NOTE | 2024-01-17 15:53 | PTCARENOTE ---
Son asking questions spoke with son that patient is dying. Son asked about taking him home, explained that pt is on alot of O2 and Iv meds for SOB and pain. And he may not survive the trip home. Son understood a bit shaken .
--- NOTE | 2024-01-18 01:37 | PTCARENOTE ---
Caring for patient overnight. Morphine gtt continued at step 2, 2mg/hr. PRN doses given. Pt alert and awake but confused, always states that he is comfortable. Breathing is labored, and looks SOB, this is when PRN's were given. Main goal is keeping
pt comfortable, pt wiped down with CHG d/t diaphoresis. Clayton changed, CC applied. Will continue to monitor.
[2024-01-18] MEDS: MORPHINE SULFATE 2 MG IV ×5 (02:51→14:50)
[2024-01-18] MEDS: ATIVAN 2 MG IV ×2 (02:55→09:48)
[2024-01-18] MEDS: NSS (PRESERVATIVE FREE) 1 ML IV ×2 (02:55→09:49)
--- NOTE | 2024-01-18 03:15 | PTCARENOTE ---
updated CRYSTAL FLAT GRINDER on change in pt status. agonal breathing, less responsive. vitals about the same, HR 100's. sao2 80's. CRYST[employer] FLAT GRINDER updated son if he would like to be at beside with pt. Son said he would be in 1-2 hours.
--- NOTE | 2024-01-18 03:52 | PTCARENOTE ---
son at bedside.
[2024-01-18] MEDS: ZESTRIL PO (08:05)
--- NOTE | 2024-01-18 09:25 | HOSPNOTE ---
Addendum entered by Iman Loving RN 01/18/24 20:22:
Noted that patient . Called son Varun and left a voicemail offering condolences. Also reviewed that Hospice Bereavement service will be in contact tomorrow to offer him support as well. Provided call back number if he desired.
Original Note:
Hospice continues to follow for emotional support to jacy Bond. Reviewed records and see that patient has taken a decline overnight and appears to be imminent. Reached out to primary RN and offered to be available for support if needed. Will
continue to monitor patients status. Will call jacy Bond this evening as planned yesterday to offer him support. I will also be asking our bereavement team to be in contact with Varun tomorrow to offer him support as well. Varun was open to
this support during our conversation yesterday. Please let us know if we can assist in anyway.
[2024-01-18 09:54] VITALS: BP 66/49
--- NOTE | 2024-01-18 09:54 | W.PN.HOSP.TC ---
Addendum entered and electronically signed by Toribio Quispe MD 01/18/24 21:15:
Attending Addendum-
I saw and evaluated the patient. I reviewed the resident�s note and agree with findings and plan as documented in the resident�s note. Patient is unresponsive but appears comfortable. Seen with son and friends present. All questions were answered.
Full 12 point ROS unable to be reviewed due to LOC. Exam- vitals reviewed in EMR GEN-comfortable aganoal brething. heart tachy, intermittant cough clearing wet secretions.
# Metastatic Malignancy to Lungs
- unknown primary
- cont morphine gtt @ 3mg/hr
- chest/abd/pelvis 01/12- Innumerable widespread bilateral pulmonary nodules and innumerable widespread hepatic low-attenuation lesions suspicious for malignancy, findings could overall represent metastatic disease. Primary lung malignancy cannot be
differentiated.
- cont comfort care in IMU due to patients status
- start prn ativan, levsin and dc all other non comfort based meds
- add scopolamine patch for excess secretions
- cont low flow o2 and nebs as needed for comfort
- imminent
- actively managing based on comfort level
# Acute on chronic anemia
# Hyponatremia
#Probable COPD
# Acute Transaminitis
# HTN
# HLD
# H/O CVA
DVT- none
CODE-DNR/DNI
Dispo-continue IP comfort care - imminent
Time spent coordinating care, review of plan of care with resident, personally reviewed previous records in EMR, med rec, d/w nursing , updating consultants and family- 37 mins
Original Note:
Today's Communication/Plan
-
Continue comfort measures, wean off oxygen
Assessment / Plan
Assessment / Plan
Assessment: 63-year-old male with past medical history of GI bleed, esophageal ulcer, Mcgarry's esophagus, recently admitted here 12/17 to 12/19 for upper GI bleed, who presented to the ED on 01/13/2024 with SOB, fatigue and intermittent hemoptysis.
It was found that he has diffuse metastatic disease throughout his lungs and liver primary unknown. Decision was made to move to hospice and comfort care
Impression:
Hemoptysis
Acute blood loss anemia
Hyponatremia
Acute transaminitis
Essential hypertension
Hyperlipidemia
Hx of CVA
Assessment and plan:
Hemoptysis/metastatic disease
- Likely due to metastatic lung disease
- Prior black stool likely due to swallowed blood vs acute GI bleed.
- CXR 01/13/2024 with Innumerable widespread bilateral pulmonary nodules suspicious for malignancy, findings could overall represent metastatic disease.
-Primary malignancy cannot be differentiated on imaging alone.
- CT chest/abdomen/pelvis 01/13/2024 with Innumerable widespread bilateral pulmonary nodules and innumerable widespread hepatic low-attenuation lesions suspicious for malignancy, as well as bilateral hilar and mediastinal lymphadenopathy. Very likely
represents metastatic disease.
-Medical oncology following
-IR consulted for liver biopsy. Defer for now given respiratory instability
-Conversation was had with patient and son present regarding patient's CODE STATUS. It was decided the patient's wishes were to be DNR/DNI.
-Hospice was consulted
-Morphine drip was initiated, as well as as needed
Acute respiratory failure
-Patient had an episode of tachycardia and desaturation. Was eventually placed on a nonrebreather and transferred to IMU.
-patient received morphine, 40 mg of IV Lasix, as well as metoprolol to help control his symptoms and breathing.
-Patient has a 20-roxx-dshv smoking history, as well likely underlying COPD. But no PFTs on file and does not take inhalers at home.
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
-Patient has innumerable and widespread bilateral pulmonary nodules likely representing metastatic disease.
-DuoNebs as needed for comfort
-Wean oxygen
-Pulmonology following
Goals of care discussion/hospice care
-Patient made the decision to become DNR/DNI 01/15/2024
-Reported episodes of restlessness and overnight was given multiple doses of as needed comfort medications. This morning patient opened eyes to voice but did not track and only responded with grunts. Son states this is how he was overnight
-Hospice was consulted and patient was started on comfort care only
-Father and son seem to be on the same page at this point, son expressed to me that he just wants his father to be as comfortable as possible. The father decided that he wants to proceed with comfort care only. These wishes were confirmed again
this morning
-The son relayed that if possible the father wishes would like to be sent home on hospice however the priority is to make him as comfortable as possible wherever that may be.
-Hospice following for support, very much appreciated.
-Medications that were discontinued because of comfort care include pantoprazole, rosuvastatin, ferric gluconate, ezetimibe, amlodipine, sucralfe, as well as daily labs
-Patient will be kept on breathing treatments for comfort and given morphine
-Patient taking morphine as needed as well as Ativan 2 mg IV every 2 for comfort
-Patient was changed to low-flow nasal cannula 15 L
-Will wean oxygen
-Zofran milligrams IV every 6 as needed was added for comfort
-Hyoscyamine 0.125 mg p.o. every 4 as needed for comfort was initiated
-Scopolamine patch was ordered as needed for comfort
Acute Blood Loss anemia
- Presentation with Hb 6.9 on 01/13/2024 s/p 2U PRBC, improved to 8.7 on 01/14/2024. 7.6 on 01/16/2024,
- Possibly due to chronic hemoptysis from occult pulmonary hemorrhage vs chronic GI bleeding
- EGD on 01/14/2024 with a focal area of nodularity at prior esophageal ulcer site
-GI recommended continuing PPI twice daily and advancing diet. GI then signed off. Recommendations appreciated.
-Stop trending due to comfort care
Weight loss not due to malnutrition
-Patient endorses 25 pound weight loss
-Patient has diffuse metastatic disease throughout his lungs and liver. Primary unknown.
-Protein is 6.2 albumin is 3.5 weight loss is due to chronic condition and not malnutrition.
Hyponatremia
-Hyponatremia resolved 135
- Likely contraction hyponatremia, could also represent paraneoplastic syndrome.
-Stop trending due to comfort care
Acute Transaminitis
-Stable, likely due to liver pathology
-Stop trending due to comfort care
HTN-
- Labile blood pressure
-Medications being stopped due to comfort care
HLD-
Medications stopped due to comfort care
H/O CVA-
Medication stopped due to comfort care
DVT p- scds
CODE STATUS: DNR/DNI
Anticipated Discharge: > 48 hours
Subjective/Interval History
-
Date of Service: January 18, 2024
Patient had episodes of restlessness overnight, multiple PRNs were given. Patient is now unresponsive, but is comfortable
Objective Data
-
Vital Signs:
Vital Signs
Temp Pulse Resp BP Pulse Ox
98.1 F 102 20 66/51 80
01/17/24 19:38 01/18/24 02:50 01/17/24 19:38 01/17/24 19:38 01/18/24 02:50
I&O
01/17/24 01/18/24 01/19/24
06:59 06:59 06:59
Intake Total 600 / 600
Output Total 660 / 660
Balance -60 / -60
Review of Systems
-
History Source: Family
Constitutional: Reports No Symptoms
Respiratory: Reports Cough and Trouble Breathing
Cardiac: Reports No Symptoms
Abdomen/GI: Reports No Symptoms; Denies Vomiting, Diarrhea or Bloody Stools
Musculoskeletal: Reports No Symptoms
Skin: Reports No Symptoms
Physical Exam
-
General: Comfortable, Respiratory Distress and Appears Chronically Ill
Respiratory: Wheezes and Other (Short labored breaths)
Cardiac: Regular Rhythm and S1/S2
GI: Soft, Nondistended and Normal Bowel Sounds
Musculoskeletal: No Edema
Skin: Warm and Dry
Neuro: Sedated and Other (Patient opens eyes, and grunts but is unresponsive. Patient seems comfortable and not in acute distress)
[2024-01-18] MEDS: MORPHINE 100 IV (10:59)
[2024-01-18] MEDS: TRANSDERM-SCOP 1 PATCH TRANSDERM (11:49)
--- NOTE | 2024-01-18 14:57 | W.PN.PUL3 ---
Today's Communication / Plan
-
Comfort measures
Assessment
-
Assessment: 63-year-old male former tobacco smoker with a past medical history of UGIB (2002), hypertension, hypercholesterolemia, CVA (2000), cervical disc disease, GERD with esophagitis and hiatal hernia presents with hemoptysis + shortness of
breath. Patient recently hospitalized here from 12/17 - 12/20/2023 due to upper GI bleed after presenting with melena. He was taking ibuprofen for toothache then and was seen by GI who performed EGD on 12/19/2023 showing LA grade a esophagitis with an
esophageal ulcer without any active bleeding, with long segment Mcgarry's esophagus, 5 cm hiatal hernia and no explanation for his melena in the stomach up to the second portion of the duodenum. He now presents with acute anemia with Hb 6.9, and
transaminitis. CXR shows innumerable bilateral lung nodules, and CT chest, abdomen, pelvis confirmed innumerable widespread bilateral lung nodules with bilateral hilar/mediastinal lymphadenopathy and innumerable low-attenuation lesions seen in the
liver with the largest conglomerate lobulated area in the left lobe measuring >7 cm. There was question about him having hematemesis on 01/13/2024, he was given IVF with NS 0.9% X1 liter, in addition to PPI drip. GI was consulted, and he had a repeat
EGD on 01/14/2024 showing a salmon-colored mucosa with focal area of nodularity in the distal esophagus within normal examined duodenum with a small hiatal hernia. Due to his chest imaging findings, pulmonary service now consulted for additional
management/recommendations.
Chronic conditions CREDIT REPORT CHECKER: Hypertension, hyperlipidemia, history of CVA, history of Mcgarry esophagus, hiatal hernia, GERD with esophagitis (esophagitis seen on EGD from 12/19/2023), cervical arthritis, history of GI bleed, former tobacco use disorder
Impression:
#Hemoptysis likely due to metastatic pulmonary disease
#Abnormal CT chest with innumerable pulmonary nodules and mediastinal/hilar lymphadenopathy concerning for metastatic disease
#Innumerable low-attenuation lesions in the liver concerning for metastatic disease
#Suspected COPD based on initial evaluation
#Hx of UGIB with possible hematemesis on admission s/p repeat EGD on 01/14/2024
#Hiatal hernia
#GERD with esophagitis and suspected Mcgarry's esophagus
#Hyponatremia � likely paraneoplastic
#Transaminitis with hyperbilirubinemia likely due to metastatic liver disease; ALp also elevated (?mets to bone)
#Left renal calculi
#Bilateral subcentimeter low-attenuation renal lesions too small to characterize - renal malignancy cannot be excluded
Plan/recommendations
Clinical deterioration over the last 24 hours. Patient more unresponsive
Discussion with case management noted, family
Plans for comfort noted
Niece at bedside
Patient appears to be comfortable, no significant use of accessory muscles
Reviewed with nursing
Emotional support provided
We will sign off. Please call with questions
Subjective Data
-
Date of Service:
Date of Service: January 18, 2024
Chief Complaint: Pulmonary Follow Up
Subjective:
Case management correspondence reviewed. Patient declined overnight. Plan to pursue comfort measures noted. Niece at bedside. Patient is less responsive at this time with occasional agonal breathing
Objective Data
Data Reviewed
Vital Signs / I&O / Oxygen:
Vital Signs
Temp Pulse Resp BP Pulse Ox
98.1 F 98 15 66/49 43
01/17/24 19:38 01/18/24 14:56 01/18/24 09:54 01/18/24 09:54 01/18/24 14:56
Intake and Output
01/17/24 01/18/24 01/19/24
06:59 06:59 06:59
Intake Total 600 / 600
Output Total 660 / 660
Balance -60 / -60
SaO2 43
Nasal Cannula flow liters per 2
minute
Physical Exam
General: Comfortable (Lying flat)
HEENT: Normocephalic
Cardiovascular: Rub (n)
Respiratory: Wheeze (No audible), Crackles (Bilateral), Rhonchi (n), Accessory Resp Muscle Use (Occasional) and Other (Occasional agonal breathing)
GI: Soft, Non Distended (Obese) and Non Tender
Neurology: Unresponsive
Labs/Micro/Reports
Lab Data
01/16/24 19:00
01/16/24 05:18
--- NOTE | 2024-01-18 17:22 | W.PN.DEATH ---
Pronouncement of
-
Called to see patient to pronounce.
No spontaneous heart tones or respirations noted.
Patient not responsive to verbal stimuli.
Patient is pronounced .
Time of : 16:30
Date of : 01/18/24
Cause of : Acute hypoxic respiratory failure
Family Notified: Yes
--- NOTE | 2024-01-19 10:11 | W.DCSUMMARY ---
Discharge Summary
Discharge Data
Date of Admission: 01/13/24
Date of Discharge: 01/19/24
-
Pending Results: No
Hospital Course
Discharging Physician : Jose Enrique Mena
Disposition : Patient
Primary care physician : Dr. Senior
Principal Discharge diagnosis : Acute respiratory failure due to diffuse metastatic disease
Chronic Discharge diagnosis : Metastatic malignancy to lungs and liver, unknown primary, acute on chronic anemia, hyponatremia, COPD, transaminitis, hypertension, hyperlipidemia, history of CVA, hemoptysis, acute blood loss anemia, hyponatremia,
weight loss not due to malnutrition
Hospital Course : 3-year-old male presented with acute worsening of shortness of breath and hemoptysis. He was recently hospitalized here for a GI bleed. In the ED he had hemoglobin of 6.9 and received 2 units packed red blood cells. He also
endorsed not having any dark stools or blood in the stools. He was admitted for further evaluation. During his admission we ordered a CAT scan abdomen pelvis with IV contrast with demonstrated numerous bilateral pulmonary metastases as well as
diffuse metastatic disease throughout the liver and mediastinal lymphadenopathy. Patient was completely unaware of his diagnosis. Primary lung malignancy cannot be differentiated on imaging alone. During his stay patient continued to have
respiratory instability, he had acute hypoxic respiratory failure secondary to diffuse metastatic disease. He had an episode of tachycardia to the 150s as well as desaturations to the 80s and rapid was called and patient was upgraded to IMU level
care. In the IMU patient had to be placed on a nonrebreather overnight, next morning was changed over to high flow nasal cannula 50 L at 70% FiO2 patient was satting in the low 90s. During this time GI signed off as there is no active GI bleed.
Pulmonary and oncology began following patient. It was planned to have the patient get a liver biopsy however due to his respiratory instability this was not able to be done. Primary malignancy was never alluded. while in the IMU a conversation
was open regarding his goals of care it was eventually decided that the patient will be DNR/DNI and he just want to be comfortable hospice was consulted case management was consulted patient was started on hospice. All non-comfort meds were
discontinued patient was begun to be weaned off oxygen. Multiple goals of care discussions were had with the patient and his son present through multiple days with the entire team present patient's goals were reiterated to be comfort care only
patient was given as needed morphine Ativan as well as other medications for comfort. During these conversations patient was completely alert and oriented and understood the situation thoroughly. Patient yesterday 01/18/2024 with his family
present he was unresponsive all morning secondary to comfort medications.
Important imaging findings : 01/13/2024 chest x-ray, findings: Innumerable bilateral pulmonary nodular opacities suspicious for metastases. This could be further evaluated with follow-up contrast-enhanced CT chest.
07/15/[address], impressions: Innumerable widespread bilateral pulmonary nodules and innumerable widespread hepatic low-attenuation lesions suspicious for malignancy, findings could overall represent metastatic disease.
Bilateral hilar and mediastinal lymphadenopathy.
No significant retroperitoneal lymphadenopathy. Indeterminate 1.4 cm right lower quadrant mesenteric lymph node.
Likely small hiatal hernia.
Small bilateral renal simple cysts as well as additional bilateral subcentimeter low-attenuation renal lesions too small to characterize. Renal malignancy cannot be excluded. 1Small left renal calculi.
Indeterminate 1.3 cm right adrenal lesion.
Likely coronary artery calcifications.
No intestinal obstruction or free air. Distal colon markedly limited without oral contrast with sigmoid diverticulosis noted. Unfortunately, nonobstructing distal colonic mass cannot be entirely excluded.
01/16/2024 chest x-ray findings:
Redemonstration of extensive pulmonary metastatic disease. No effusions or pneumothorax.
Procedure findings :
Endoscopy, 01/14/2024 findings:
Circumferential salmon-colored mucosa was present. The maximum
longitudinal extent of these esophageal mucosal changes was 6 cm in
length. A focal area of nodularity at prior ulcer site was seen in the
distal esophagus, 32cm from the incisors. Biopsies were taken with a
cold forceps for histology. No other suspicious areas were seen under
white light and NBI.
A small hiatal hernia was present.
The examined duodenum was normal.
Discharge Plan
-
Patient Disposition:
Date/Time
Date/Time: 01/18/24 16:30
Discharge Date and Time
Discharge Date/Time: 01/18/24 16:30
Print Language: [email or web address]
== END 2024-01-18 16:30 | disposition expired | DRG 180 ==
LOC: IMU 12:23
PROVIDERS: Nurse Practitioner Family; Registered Nurse; Student in an Organized Health Care Education/Training Program; ADMITTING PHYSICIAN Family Medicine; CONSULT PHYSICIAN Internal Medicine Critical Care Medicine; CONSULT PHYSICIAN Internal Medicine Gastroenterology; EMERGENCY PHYSICIAN Emergency Medicine; FAMILY PHYSICIAN Nurse Practitioner Adult Health; OTHER PHYSICIAN Internal Medicine Hematology & Oncology
PROC: 30233N1 Transfusion of Nonautologous Red Blood Cells into Peripheral Vein, Percutaneous Approach (ICD-10-PCS; 2024-01-13)
PROC: 0DB58ZX Excision of Esophagus, Via Natural or Artificial Opening Endoscopic, Diagnostic (ICD-10-PCS; 2024-01-14)
DX: C34.90 Malignant neoplasm of unspecified part of unspecified bronchus or lung (principal); J96.01 Acute respiratory failure with hypoxia; K92.2 Gastrointestinal hemorrhage, unspecified; D62 Acute posthemorrhagic anemia; C78.7 Secondary malignant neoplasm of liver and intrahepatic bile duct; R04.2 Hemoptysis; E87.1 Hypo-osmolality and hyponatremia; J44.9 Chronic obstructive pulmonary disease, unspecified; R63.4 Abnormal weight loss; Z68.29 Body mass index [BMI] 29.0-29.9, adult; K22.89 Other specified disease of esophagus; K44.9 Diaphragmatic hernia without obstruction or gangrene; K20.90 Esophagitis, unspecified without bleeding
CPT/HCPCS: 88305; 71045; 71046; 71260; 74177; 80048; 80053; 81003; 81015; 82607; 82728; 83540; 83615; 83690; 83735; 84484; 85014; 85018; 85025; 85045; 85610; 85730; 86704; 86706; 86708; 86803; 86850; 86900; 86901; 86920; 87340; 87389; 93005; 94640; 96361; 96374; 99285; J2916; P9016; Q9967